=== PATIENT | male | born 1975 | race Caucasian/White ===

== ENCOUNTER 2016-02-15 08:53 | Emergency (ER) | payer BC, OTHER ==
[2016-02-15 09:52] LABS: Hematocrit 38.9 % (42.0-52.0); Hemoglobin 13.1 gm/dL (13.5-18.0); Mean Cell Volume 88.4 fl (78-100); Mean Corpuscular Hemoglobin 29.8 pg (27-31); Mean Corpuscular Hgb Conc 33.7 g/dl (32-36); Mean Platelet Volume 9.6 fl (6.0-9.5); Neutrophil % 62.4 % (42-75.0); Platelet Count 233 K/mm3 (150-450); Red Cell Distribution Width 12.6 % (11.5-14.0); White Blood Count 7.9 K/mm3 (4.0-10.5)
[2016-02-15 10:00] LABS: Urine Bilirubin Negative (NEGATIVE); Urine Blood Negative /ul (NEGATIVE); Urine Ketone Negative (NEGATIVE); Urine Nitrite Negative (NEGATIVE); Urine Protein Negative (NEGATIVE); Urine Urobilinogen Normal (NORMAL)
[2016-02-15 10:07] LABS: Anion Gap 15.4 mmol/L (6.8-13.8); BUN/Creatinine Ratio 11.1 (9.0-21.6); Bilirubin, Total 0.4 mg/dL (0.0-1.1); Ca. Corrected For Albumin 9.6 mg/dL (8.4-10.2); Calcium * 9.9 mg/dL (7.9-10.9); Carbon Dioxide 23.6 mmol/L (24-32.6); Total Protein 7.4 gm/dL (6.2-8.2)
[2016-02-15 10:10] LABS: Urine Appearance Clear; Urine Bacteria None Seen; Urine Color Yellow; Urine RBC None Seen /hpf (0-5); Urine WBC None Seen /hpf (0-5)
[2016-02-15] MEDS ORDERED: DICYCLOMINE HCL 10 MG/ML AMPUL IM ONE ×2 (10:11→10:15)
[2016-02-15] MEDS ORDERED: NORMAL SALINE 1,000 ML IV ONE (10:12)
--- NOTE | 2016-02-15 10:22 | ERNOTE ---
Abdominal HPI - Narrative Date of Service: 02/15/16 - General Chief Complaint: Abdominal Pain Time Seen by Provider: 02/15/16 10:00 Source: patient Exam Limitations: no limitations - Immun/Allergies/Home Medications Immunizatons: IMMUNIZATION HX Immunizations Up to Date Yes History of Influenza Vaccine Yes Hx Pneumococcal Vaccination No Allergies/Adverse Reactions: Allergies codeine [Codeine] Allergy (Severe, Verified 02/15/16 09:26) dizzy diphenhydramine HCl [From Benadryl] Allergy (Severe, Verified 02/15/16 09:26) Hives ibuprofen Allergy (Severe, Verified 02/15/16 09:26) Pain meloxicam [From Mobic] Allergy (Severe, Verified 02/15/16 09:26) itch oxycodone HCl [From OxyContin] Allergy (Severe, Verified 02/15/16 09:26) Nausea simvastatin Allergy (Severe, Verified 02/15/16 09:26) Pain amoxicillin Allergy (Verified 02/15/16 09:26) bee venom (honey bee) Allergy (Verified 02/15/16 09:26) nabumetone Allergy (Verified 02/15/16 09:26) sulfamethoxazole [From Bactrim] Allergy (Verified 02/15/16 09:26) trimethoprim [From Bactrim] Allergy (Verified 12/06/15 19:17) azithromycin [From Zithromax] Adverse Reaction (Verified 12/06/15 19:17) Itching Home Medications: HOME MEDICATIONS Esomeprazole Magnesium [Nexium] 20 mg PO DAILY 12/06/15 [Last Taken Unknown] Ciprofloxacin HCl [Cipro] 500 mg PO BID 02/15/16 [Last Taken Unknown] HYDROcodone/ACETAMINOPHEN [[place] 5-325] 1 tab PO Q6H PRN #8 tab 02/15/16 [Last Taken Unknown] Lactobac Cmb #3/Fos/Pantethine [Probiotic & Acidophilus Cap] 1 tab PO TID [Last Taken Unknown] - History of Present Illness Narrative: Pt. comes in with c/o one week history of testicle pain, abd pain, suprapubic pain and B flank pain. Pt. denies any NVD at this time. Pt. states that he was diagnosed testicular infection a week ago but did not take the antibiotics prescribed due to a recent C Diff infection. Pt. states that symptoms have worsened since making this decision. Pt. states that urination aggravates the pain but nothing alleviates the pain and he has not tried any prehospital treatment. Review of Systems - Review of Systems Constitutional: Present: weakness, fatigue, malaise. Absent: fever, chills, weight loss, decreased activity level EYE: Present: no symptoms reported ENT: Present: no symptoms reported Respiratory: Present: no symptoms reported. Absent: shortness of breath, cough , wheezing Cardiology: Present: no symptoms reported. Absent: chest pain, palpitations, edema Gastrointestinal/Abdominal: Present: abdominal pain, eating less, drinking less. Absent: nausea, vomiting, diarrhea Genitourinary: Present: frequency, pain, dysuria, decreased urinary output. Absent: hematuria, discharge Musculoskeletal: Present: back pain. Absent: neck pain, joint pain Skin: Present: no symptoms reported. Absent: rash, change in color Neurological: Present: no symptoms reported. Absent: headache, dizziness/light- headedness, numbness, tingling All Other Systems: All systems neg except as marked - Patient's Past Medical History Patient History - Medical: Anemia, GERD Patient History - Cardiac/Respiratory: Hyperlipidemia Patient History - Cancer: No Hx of Cancer Patient History - Surgical Procedures: Other - Family History Father Family History - Medical: Diabetes Type 2, Other Family History - Cardiac/Respiratory: Coronary Heart Disease, COPD, Hyperlipidemia Mother Family History - Medical: No pertinent hx Family History - Cardiac/Respiratory: No pertinent hx Sister Family History - Medical: Family History - Cancer: Leukemia - AML - Social History Living Situations: spouse Smoking Status: Current every day smoker Have you smoked in the past 12 months: Yes Do you dip or chew tobacco: No Patient requests Smoking Cessation Consult: No Initiate information on Smoking Cessation: No Alcohol Use: none Drug Use: none Physical Exam - Physical Exam General Appearance: Present: wd/wn, alert, no apparent distress Eye Exam: Normal inspection: bilateral, PERRL: bilateral, EOMI: bilateral Ears, Nose, Throat: Present: normal ENT inspection, hearing grossly normal, normal pharynx Neck: Present: normal inspection, nontender. Absent: lymphadenopathy (R), lymphadenopathy (L) Respiratory: Present: no respiratory distress, normal breath sounds, no accessory muscle use, chest nontender, lungs clear Cardiovascular/Chest: Present: regular rate, rhythm, no murmur, normal peripheral pulses Gastrointestinal/Abdominal: Present: normal bowel sounds, tenderness - upper epigastric, suprapubic, B groin and B flank Male Genitals Exam: Present: epididymal tenderness - B, inguinal tenderness - B , scrotum tenderness (R), scrotum tenderness (L) Back Exam: Present: normal inspection, normal range of motion, no CVA tenderness , no vertebral tenderness Neurological Exam: Present: alert, oriented, normal mood/affect, no motor/ sensory deficits Skin Exam: Present: normal color, warm/dry. Absent: pallor, skin rash Lymphatic Exam: Present: inguinal node (R), inguinal node (L) ED Progress - Date and Time Seen: Date and Time: 02/15/16 10:[address] Jovel and he recommends CT of abdomen for further diagnosis of worsening epidydimitis. As pt. was placed on Cipro by him without compliance. 02/15/16 13:34 Given that pt. without acute process other than presumed epidydimitis will have pt. follow up with PCP and Dr Jovel and will give medications for pain and have pt. start ordered abx - Results and Orders Patient's Lab Results:: I have reviewed the patient's lab results. - Vital Signs Patient's Vital Signs:: I have reviewed the patient's vital signs. Vital Signs: Vital Signs 02/15/16 09:17 Temperature 36.3 C L Pulse Rate 72 Respiratory 22 H Rate Blood Pressure 104/60 O2 Sat by Pulse 99 Oximetry - CT/Ultrasound CT/Ultrasound Narrative: CT negative for any acute process. - Progress/Reassessment Chief Complaint: Abdominal Pain Departure - Departure Clinical Impression: Acute epididymitis, Fatty liver disease, nonalcoholic Disposition: Home self-care Condition: Good Instructions: Nonalcoholic Fatty Liver Disease Diet, Hepatomegaly, [id number] , Epididymitis Additional Instructions: Please follow up with Dr Jovel and Dr Scott as ordered. Please start taking cipro as ordered. Please limit amount of Tylenol you are taking. Referrals: Chinyere Scott MD [Primary Care Provider] - Prescriptions: HYDROcodone/ACETAMINOPHEN [[place] 5-325] 1 tab PO Q6H PRN #8 tab PRN Reason: Pain
[2016-02-15] MEDS ORDERED: DIATRIZOATE MEGLU/DIATRIZO SOD 30 ML BTL ONE (10:34)
[2016-02-15] MEDS ORDERED: HYDROcodone/ACETAMINOPHEN 1 EACH TABLET ONE ×2 (13:36→13:59)
[2016-02-15] MEDS ORDERED: HYDROcodone/ACETAMINOPHEN 1 EACH TABLET PO ONE (13:36)
[2016-02-15 14:14] VITALS: BP 104/64
== END 2016-02-15 14:14 | disposition home or self-care (01) ==
LOC: ER 08:53
DX: N45.1 Epididymitis (principal); K76.0 Fatty (change of) liver, not elsewhere classified; F17.210 Nicotine dependence, cigarettes, uncomplicated; K21.9 Gastro-esophageal reflux disease without esophagitis

== ENCOUNTER 2016-02-18 08:41 | Emergency (ER) | payer BC, OTHER ==
[2016-02-18 08:55] VITALS: BP 155/84
--- NOTE | 2016-02-18 09:30 | ERNOTE ---
Abdominal HPI - Narrative Date of Service: 02/18/16 - General Chief Complaint: Abdominal Pain Source: patient - Immun/Allergies/Home Medications Immunizatons: IMMUNIZATION HX Immunizations Up to Date Yes History of Influenza Vaccine Yes Hx Pneumococcal Vaccination No Allergies/Adverse Reactions: Allergies codeine [Codeine] Allergy (Severe, Verified 02/18/16 08:55) dizzy diphenhydramine HCl [From Benadryl] Allergy (Severe, Verified 02/18/16 08:55) Hives ibuprofen Allergy (Severe, Verified 02/18/16 08:55) Pain meloxicam [From Mobic] Allergy (Severe, Verified 02/18/16 08:55) itch oxycodone HCl [From OxyContin] Allergy (Severe, Verified 02/18/16 08:55) Nausea simvastatin Allergy (Severe, Verified 02/18/16 08:55) Pain amoxicillin Allergy (Verified 02/18/16 08:55) bee venom (honey bee) Allergy (Verified 02/18/16 08:55) nabumetone Allergy (Verified 02/18/16 08:55) sulfamethoxazole [From Bactrim] Allergy (Verified 02/18/16 08:55) trimethoprim [From Bactrim] Allergy (Verified 02/18/16 08:55) azithromycin [From Zithromax] Adverse Reaction (Verified 02/18/16 08:55) Itching ciprofloxacin [From Cipro] Adverse Reaction (Verified 02/18/16 08:56) Hives ciprofloxacin HCl [From Cipro] Adverse Reaction (Verified 02/18/16 08:56) Hives Home Medications: HOME MEDICATIONS Esomeprazole Magnesium [Nexium] 20 mg PO DAILY 12/06/15 [Last Taken Unknown] HYDROcodone/ACETAMINOPHEN [[place] 5-325] 1 tab PO Q6H PRN #8 tab 02/15/16 [Last Taken Unknown] Lactobac Cmb #3/Fos/Pantethine [Probiotic & Acidophilus Cap] 1 tab PO TID [Last Taken Unknown] Doxycycline Monohydrate 100 mg PO BID #20 tablet 02/18/16 [Last Taken Unknown] traMADol HCL [Ultram] 50 mg PO QID PRN #20 tablet 02/18/16 [Last Taken Unknown] - History of Present Illness Timing: constant Quality: moderate, other - burning with urination and difficulty with starting a stream Review of Systems - Review of Systems Constitutional: Present: See HPI EYE: Present: no symptoms reported ENT: Present: no symptoms reported Respiratory: Present: no symptoms reported Cardiology: Present: no symptoms reported Gastrointestinal/Abdominal: Present: no symptoms reported, other - pt has a known inflammed prostate with epididymitis Genitourinary: Present: no symptoms reported Musculoskeletal: Present: no symptoms reported Skin: Present: no symptoms reported Neurological: Present: no symptoms reported Endocrine: Present: no symptoms reported Hematologic/Lymphatic: Present: no symptoms reported Psych: Present: no symptoms reported - Patient's Past Medical History Patient History - Medical: Anemia, GERD, Other - Prostatitis, Epididymitis Patient History - Cardiac/Respiratory: Hyperlipidemia Patient History - Cancer: No Hx of Cancer Patient History - Surgical Procedures: Other - Family History Father Family History - Medical: Diabetes Type 2, Other Family History - Cardiac/Respiratory: Coronary Heart Disease, COPD, Hyperlipidemia Mother Family History - Medical: No pertinent hx Family History - Cardiac/Respiratory: No pertinent hx Sister Family History - Medical: Family History - Cancer: Leukemia - AML - Social History Living Situations: home Alcohol Use: none Drug Use: none Physical Exam - Physical Exam General Appearance: Present: wd/wn, alert, moderate distress Eye Exam: Normal inspection: bilateral, PERRL: bilateral Ears, Nose, Throat: Present: normal ENT inspection, hearing grossly normal, normal pharynx Neck: Present: normal inspection, nontender Respiratory: Present: no respiratory distress, normal breath sounds, no accessory muscle use, chest nontender, lungs clear Cardiovascular/Chest: Present: regular rate, rhythm, no murmur, normal peripheral pulses Gastrointestinal/Abdominal: Present: normal bowel sounds, nontender, nondistended, soft, no organomegaly Rectal Exam: Present: deferred - Pt had a recent rectal exam and has deferred one today Back Exam: Present: normal inspection, normal range of motion Extremity Exam: Present: normal inspection, non-tender, no edema, normal range of motion Neurological Exam: Present: alert, oriented, normal mood/affect Skin Exam: Present: normal color, warm/dry Lymphatic Exam: Present: no adenopathy ED Progress - Vital Signs Patient's Vital Signs:: I have reviewed the patient's vital signs. Vital Signs: Vital Signs 02/18/16 08:51 Temperature 36.7 C Pulse Rate 87 Respiratory 12 Rate Blood Pressure 155/84 O2 Sat by Pulse 99 Oximetry - Progress/Reassessment Chief Complaint: Abdominal Pain Progress:: Unchanged - Transfer of Care Expected Disposition: Discharge Plan - Plan Plan: We will try Doxycycline and Tramadol. Pt is difficult to treat due to the fatty liver. Departure - Departure Clinical Impression: Epididymitis Prostatitis Qualifiers: Prostatitis type: chronic Qualified Code(s): N41.1 - Chronic prostatitis Disposition: Home self-care Condition: Good Instructions: Prostatitis, [id number], Epididymitis Referrals: Chinyere Scott MD [Primary Care Provider] - Cruz Jovel MD [Associate] - Prescriptions: Doxycycline Monohydrate 100 mg PO BID #20 tablet traMADol HCL [Ultram] 50 mg PO QID PRN #20 tablet PRN Reason: Moderate Pain
== END 2016-02-18 09:35 | disposition home or self-care (01) ==
LOC: ER 08:41
DX: N45.1 Epididymitis (principal); N41.1 Chronic prostatitis; K21.9 Gastro-esophageal reflux disease without esophagitis

== ENCOUNTER 2016-03-07 07:34 | Emergency (ER) | payer BC, OTHER ==
[2016-03-07] MEDS ORDERED: HYDROmorphone HCL 1 MG/ML DISP.SYRIN ONE (07:53)
[2016-03-07] MEDS ORDERED: ASPIRIN 81 MG TAB.CHEW ONE (08:00)
[2016-03-07] MEDS ORDERED: ASPIRIN 81 MG TAB.CHEW PO ONE (08:03)
[2016-03-07] MEDS ORDERED: NITROGLYCERIN 0.4 MG/TAB BTL SL ONE (08:03)
[2016-03-07 08:08] LABS: Hematocrit 39.5 % (42.0-52.0); Hemoglobin 13.7 gm/dL (13.5-18.0); Mean Cell Volume 87.6 fl (78-100); Mean Corpuscular Hemoglobin 30.4 pg (27-31); Mean Corpuscular Hgb Conc 34.7 g/dl (32-36); Mean Platelet Volume 9.9 fl (6.0-9.5); Neutrophil # 3.7 K/mm3 (1.3-6.0); Neutrophil % 52.6 % (42-75.0); Platelet Count 246 K/mm3 (150-450); Red Blood Count 4.51 M/mm3 (4.7-6.0); Red Cell Distribution Width 12.4 % (11.5-14.0)
--- NOTE | 2016-03-07 08:11 | ERNOTE ---
Chest Pain/Cardiac HPI Date of Service: 03/07/16 Chief Complaint: Chest Pain Time Seen by Provider: 03/07/16 07:53 Source: patient, family Exam Limitations: no limitations Immunizations: IMMUNIZATION HX Immunizations Up to Date Yes History of Influenza Vaccine Yes Hx Pneumococcal Vaccination No Allergies/Adverse Reactions: Allergies codeine [Codeine] Allergy (Severe, Verified 03/07/16 09:42) dizzy diphenhydramine HCl [From Benadryl] Allergy (Severe, Verified 03/07/16 09:42) Hives ibuprofen Allergy (Severe, Verified 03/07/16 09:42) Pain meloxicam [From Mobic] Allergy (Severe, Verified 03/07/16 09:42) itch oxycodone HCl [From OxyContin] Allergy (Severe, Verified 03/07/16 09:42) Nausea simvastatin Allergy (Severe, Verified 03/07/16 09:42) Pain amoxicillin Allergy (Verified 03/07/16 09:42) bee venom (honey bee) Allergy (Verified 03/07/16 09:42) nabumetone Allergy (Verified 03/07/16 09:42) sulfamethoxazole [From Bactrim] Allergy (Verified 03/07/16 09:42) trimethoprim [From Bactrim] Allergy (Verified 03/07/16 09:42) azithromycin [From Zithromax] Adverse Reaction (Verified 03/07/16 09:42) Itching ciprofloxacin [From Cipro] Adverse Reaction (Verified 03/07/16 09:42) Hives ciprofloxacin HCl [From Cipro] Adverse Reaction (Verified 03/07/16 09:42) Hives Home Medications: HOME MEDICATIONS Esomeprazole Magnesium [Nexium] 20 mg PO DAILY 12/06/15 [Last Taken Unknown] Lactobac Cmb #3/Fos/Pantethine [Probiotic & Acidophilus Cap] 1 tab PO TID [Last Taken Unknown] traMADol HCL [Ultram] 50 mg PO QID PRN #20 tablet 02/18/16 [Last Taken Unknown] Narrative: THE PATIENT patient presents with chest pain and upper abdominal pain as being going on for 2 days. Gradual onset, intermittent pain . Pain is located more left lower chest as well as left upper abdomen. Denies any radiation of the pain. Was not diaphoretic. Not Nauseated no vomiting. Worse with movement. Denies any fever cough congestion. No headache or dizziness. 2 weeks ago he had right lower quadrant pain which he was worked up with a CAT scan which was negative. No history of diabetes or hypertension does have a history of hyperlipidemia Family history significant for dad having heart disease at the age of 65 next Pain at this time is a 7-8 out of 10. Date (Duration): 03/05/16 Timing: intermittent Severity/Quality: moderate Location: left chest Chest Pain Radiation: no radiation Nitro Today/Relief: no nitro taken today Aspirin Treatment Today: no aspirin today Associated Symptoms: Present: nausea, abdominal pain. Absent: headache, dizziness, syncope, cough, shortness of breath, diaphoresis, fever/chills, palpitations, vomiting, weakness, back pain Review of Systems - Review of Systems Constitutional: Absent: fever, weakness, fatigue ENT: Absent: ear discharge, nose congestion, nasal drainage Respiratory: Absent: shortness of breath, cough, orthopnea Cardiology: Present: chest pain. Absent: palpitations, syncope, claudication Gastrointestinal/Abdominal: Present: nausea, abdominal pain, eating less. Absent: vomiting, diarrhea, constipation All Other Systems: All systems neg except as marked - Patient's Past Medical History Patient History - Medical: Anemia, GERD, Other Patient History - Cardiac/Respiratory: No pertinent hx Patient History - Cancer: No Hx of Cancer Patient History - Surgical Procedures: Other Patient History - Other: None - Family History Father Family History - Medical: Diabetes Type 2, Other Family History - Cardiac/Respiratory: Coronary Heart Disease, COPD, Hyperlipidemia Mother Family History - Medical: No pertinent hx Family History - Cardiac/Respiratory: No pertinent hx Sister Family History - Medical: - Social History Living Situations: home Smoking Status: Current every day smoker Alcohol Use: none Drug Use: none - Immunizations Immunizations Up to Date: Yes Hx Pneumococcal Vaccination: No History of Influenza Vaccine: Yes Physical Exam - Physical Exam General Appearance: Present: alert, no apparent distress Eye Exam: PERRL: bilateral Ears, Nose, Throat: Present: normal ENT inspection, hearing grossly normal, normal pharynx Neck: Present: normal inspection, nontender, supple, full range of motion Respiratory: Present: no respiratory distress, normal breath sounds, no accessory muscle use, chest nontender, lungs clear Cardiovascular/Chest: Present: regular rate, rhythm, no murmur, normal peripheral pulses Gastrointestinal/Abdominal: Present: normal bowel sounds, nondistended, soft, tenderness - at the left upper abdomen and left lower chest wall with palpation. Absent: abnormal bowel sounds Back Exam: Present: normal inspection, normal range of motion, no CVA tenderness , no vertebral tenderness Neurological Exam: Present: alert, oriented, normal mood/affect, no motor/ sensory deficits Skin Exam: Present: normal color, warm/dry Lymphatic Exam: Present: no adenopathy ED Progress - Date and Time Seen: Date and Time: 03/07/16 11:20 Doing well - Results and Orders Patient's Lab Results:: I have reviewed the patient's lab results. - Vital Signs Patient's Vital Signs:: I have reviewed the patient's vital signs. Vital Signs: Vital Signs 03/07/16 07:47 Temperature 35.5 C L Pulse Rate 71 Respiratory 17 Rate Blood Pressure 113/66 O2 Sat by Pulse 100 Oximetry - EKG EKG: NSR EKG read: Reviewed by me EKG Comments: no acute changes nonspecific ST-T wave changes - X-Ray X-Ray #1 X-Ray: chest Interpretation: Reviewed by me X-ray Comments: No acute changes - CT/Ultrasound CT/Ultrasound Narrative: CAT scan of the abdomen and pelvis did not show anything acute - Progress/Reassessment Chief Complaint: Chest Pain Progress:: Improved Progress Note-Subjective: 03/08/16 10:09 Patient doing well no new changes discharged home return back to ER with any change or worsening symptoms - Transfer of Care Expected Disposition: Discharge - since feeling better sitting comfortably in bed does not appear to be in any distress pain is resolved. 2 troponins were negative as well as CT abdomen and pelvis was negative as well. I think a lot of this is more of his gastritis continue his present home meds follow-up family doctor in 2-3 days returning back to the ER with any change or worsening symptoms Departure - Departure Clinical Impression: Abdominal pain of unknown cause Chest pain Qualifiers: Chest pain type: unspecified Qualified Code(s): R07.9 - Chest pain, unspecified Disposition: Home Follow Up Needed Condition: Stable Instructions: Gastritis, Adult, [id number], Chest Wall Pain, [id number] Referrals: Chinyere Scott MD [Primary Care Provider] -
[2016-03-07] MEDS ORDERED: PANTOPRAZOLE SODIUM 40 MG in NORMAL SALINE 100 ML IV ONE (08:32)
[2016-03-07] MEDS ORDERED: LIDOCAINE HCL 20 ML UDC MM ONE (08:32)
[2016-03-07] MEDS ORDERED: MAG HYDROX/ALUMINUM HYD/SIMETH 30 ML UDC PO ONE (08:32)
[2016-03-07] MEDS ORDERED: BELLADONNA ALKALOIDS/PHENOBARB 60 ML BTL PO ONE (08:33)
[2016-03-07 08:34] LABS: ALT 26 U/L (19-67); AST 11 U/L (0-48); Albumin * 4.1 gm/dl (3.4-5.0); Alkaline Phosphatase * 73 U/L (50-170); Amylase * 39 U/L (25-115); Anion Gap 15.3 mmol/L (6.8-13.8); BUN/Creatinine Ratio 16.8 (9.0-21.6); Bilirubin, Total 0.4 mg/dL (0.0-1.1); Blood Urea Nitrogen 17 mg/dL (6-23); CK Total * 76 U/L (0-259); Ca. Corrected For Albumin 9.5 mg/dL (8.4-10.2); Calcium * 9.9 mg/dL (7.9-10.9); Carbon Dioxide 21.9 mmol/L (24-32.6); Chloride 107 mmol/L (97-106); Glucose * 114 mg/dL (70-110); Lipase 140 U/L (73-393); Potassium 4.2 mmol/L (3.4-4.6); Sodium 140 mmol/L (132-142); Total Protein 7.9 gm/dL (6.2-8.2)
[2016-03-07] MEDS ORDERED: PANTOPRAZOLE SODIUM 40 MG/100 ML PIGGYBACK IV ONE (08:35)
[2016-03-07 08:58] LABS: Troponin I Less than 0.017 ng/ml (0.00-0.10)
[2016-03-07] MEDS ORDERED: LORazepam 2 MG/ML DISP.SYRIN IV ONE (11:16)
[2016-03-07] MEDS ORDERED: NORMAL SALINE 1,000 ML IV ONE (11:17)
[2016-03-07] MEDS ORDERED: DIATRIZOATE MEGLU/DIATRIZO SOD 30 ML BTL PO ONE (11:34)
[2016-03-07] MEDS ORDERED: DIATRIZOATE MEGLU/DIATRIZO SOD 30 ML BTL ONE ×2 (11:36→11:43)
[2016-03-07] MEDS ORDERED: LORazepam 2 MG/ML DISP.SYRIN ONE (11:36)
[2016-03-07] MEDS ORDERED: MORPHINE SULFATE 2 MG/ML DISP.SYRIN ONE (11:44)
[2016-03-07] MEDS ORDERED: MORPHINE SULFATE 2 MG/ML DISP.SYRIN IV ONE (11:46)
[2016-03-07 13:41] VITALS: BP 106/64
== END 2016-03-07 14:55 | disposition home or self-care (01) ==
LOC: ER 07:34
DX: R10.9 Unspecified abdominal pain (principal); K29.00 Acute gastritis without bleeding; R07.9 Chest pain, unspecified; Z72.0 Tobacco use

== ENCOUNTER 2016-07-24 22:52 | Emergency (ER) | payer BC, OTHER ==
--- NOTE | 2016-07-24 22:58 | ERNOTE ---
Abdominal HPI - Narrative Date of Service: 07/24/16 - General Time Seen by Provider: 07/24/16 22:55 Source: patient, family - Immun/Allergies/Home Medications Immunizatons: IMMUNIZATION HX Immunizations Up to Date Yes History of Influenza Vaccine Yes Hx Pneumococcal Vaccination No Allergies/Adverse Reactions: Allergies codeine [Codeine] Allergy (Severe, Verified 07/24/16 23:01) dizzy diphenhydramine HCl [From Benadryl] Allergy (Severe, Verified 07/24/16 23:01) Hives ibuprofen Allergy (Severe, Verified 07/24/16 23:01) Pain meloxicam [From Mobic] Allergy (Severe, Verified 07/24/16 23:01) itch oxycodone HCl [From OxyContin] Allergy (Severe, Verified 07/24/16 23:01) Nausea simvastatin Allergy (Severe, Verified 07/24/16 23:01) Pain amoxicillin Allergy (Verified 07/24/16 23:01) nabumetone Allergy (Verified 07/24/16 23:01) sulfamethoxazole [From Bactrim] Allergy (Verified 07/24/16 23:01) trimethoprim [From Bactrim] Allergy (Verified 07/24/16 23:01) venom-honey bee [bee venom (honey bee)] Allergy (Verified 07/24/16 23:01) azithromycin [From Zithromax] Adverse Reaction (Verified 07/24/16 23:01) Itching ciprofloxacin [From Cipro] Adverse Reaction (Verified 07/24/16 23:01) Hives ciprofloxacin HCl [From Cipro] Adverse Reaction (Verified 07/24/16 23:01) Hives Home Medications: HOME MEDICATIONS Esomeprazole Magnesium [Nexium] 20 mg PO DAILY 12/06/15 [Last Taken Unknown] Lactobacillus 3/Fos/Pantethine [Probiotic & Acidophilus Cap] 1 tab PO TID [Last Taken Unknown] Lecithin 1,200 mg PO DAILY 07/24/16 [Last Taken Unknown] [place] Oil/[place]-3 Fatty Acids [Fish Oil] 1,200 mg PO DAILY 07/24/16 [Last Taken Unknown] Cefuroxime Axetil [Ceftin] 500 mg PO BID #20 tab 07/25/16 [Last Taken Unknown] Tramadol HCl [Rybix Odt] 50 mg PO Q8H PRN #10 tab.ashok 07/25/16 [Last Taken Unknown] - History of Present Illness Narrative: PT HERE FOR C/O ABD PAIN SINCE Monday. NO FEVER , NO V OR D, NO TRAUMA. DENIES UTI SX. REVIEW OF RECORD SHOWS SINCE 2014 HE HAS HAD MULTIPLE ER VISITS FOR ABDOMINAL PAINS WITH NOTHING FOUND EXCEPT ON 11/2015 WHEN HE HAD C. DIFF AFTER BEING PUT ON CLINDAMYCIN FOR A SORE THROAT. HE DENIES RECENT ANTIBIOTICS . STATES HE HAD NL BM TONGHT AT 1830 . HE ALSO ATE PORK CHOPS MASHED POTATOES AND BROCCOLI TONIGHT WITHOUT MAKING HIS PAIN WORSE. HE DENIES A HX OF LACTOSE INTOLERANCE. HE HAS NEVER BEEN SEEN BY A TYPIST FOR HIS RECURRENT ABD PAIN. HE DOES TAKE AN OTC NATURES MAD LECITHIN SUPPLEMENT ( MAIN SIDE EFFECT = NAUSEA AND ABDOMINAL PAIN) WELL A FISH OIL SUPPLEMENT. HE DOES HAVE A HX OF GERD FOOR WHICH HE IS ON NEXIUM BUT DID NOT TAKE IT TODAY. HE TRIED GAS X YESTERDAY AND GAVISCON TONIGHT WITHOUT HELP. HE SAYS HE HAS ELEVATED CHOLESTEROL BUT DENIES OTHER MEDICAL PROBLEMS. HE HAS A LONG LIST OF "ALLERGIES" THAT LOOKS MOSTLY LIKE SIDE EFFECTS INSTEAD. IS FINE. Review of Systems - Review of Systems Constitutional: Present: See HPI EYE: Present: no symptoms reported ENT: Present: no symptoms reported Respiratory: Present: no symptoms reported Cardiology: Present: no symptoms reported Gastrointestinal/Abdominal: Present: nausea, abdominal pain Genitourinary: Present: no symptoms reported Musculoskeletal: Present: no symptoms reported Skin: Present: no symptoms reported Neurological: Present: no symptoms reported Endocrine: Present: no symptoms reported Hematologic/Lymphatic: Present: no symptoms reported Psych: Present: no symptoms reported All Other Systems: All systems neg except as marked - Patient's Past Medical History Patient History - Medical: Anemia, GERD, Other Patient History - Cardiac/Respiratory: No pertinent hx, Hyperlipidemia Patient History - Cancer: No Hx of Cancer Patient History - Surgical Procedures: Other Patient History - Other: None - Family History Father Family History - Medical: Diabetes Type 2, Other Family History - Cardiac/Respiratory: Coronary Heart Disease, COPD, Hyperlipidemia Mother Family History - Medical: No pertinent hx Family History - Cardiac/Respiratory: No pertinent hx Sister Family History - Medical: - Social History Living Situations: home Abuse History: No History of abuse Psych History: No pertinent hx Smoking Status: Current every day smoker Alcohol Use: none Drug Use: none - Immunizations Immunizations Up to Date: Yes Hx Pneumococcal Vaccination: No History of Influenza Vaccine: Yes Physical Exam - Physical Exam General Appearance: Present: wd/wn, alert, moderate distress - PT WALKS IN HOLDING HIS RIGHT LOWER ABDOMEN AND MOANING AND GROANING. Respiratory: Present: no respiratory distress, normal breath sounds, no accessory muscle use, chest nontender, lungs clear Cardiovascular/Chest: Present: regular rate, rhythm, normal peripheral pulses Gastrointestinal/Abdominal: Present: normal bowel sounds, nondistended, soft, no organomegaly, tenderness - HE SAYS IT HURT ALL OVER AND ITNO BACK ON BOTH SIDES. HE CAN NOT LOCALIZE AN AREA OF GREATEST INTENSITY . HE HAS GUARDING THROUGHOUT HEIS ABDOMEN BUT NO REBOUND. NO MASSES. Back Exam: Present: normal inspection, no vertebral tenderness, CVA tenderness ( L) Extremity Exam: Present: normal inspection Neurological Exam: Present: alert, oriented, other - HE SEEMS SOME WHAT DRAMATIC , MOANING AND GROANING ALSO WHEN R.N. STARTS IV. Skin Exam: Present: normal color, warm/dry. Absent: jaundice ED Progress - Results and Orders Patient's Lab Results:: I have reviewed the patient's lab results. Results and Orders: THE CBC AND CMP ARE NORMAL THEY HAVE BEEN IN THE PAST. HIS URINE THOUGH HAS + LEUKO LIZZ. AND WBC AND 2+ BACTERIA . A CULTURE IS PENDING. THE CRP = 0.3 OR NEGATIVE. - Vital Signs Patient's Vital Signs:: I have reviewed the patient's vital signs. Vital Signs: VS ARE TOTALLY NORMAL , EVEN HEART RATE THOUGH HE IS MOANING WITH HIS PAIN. Plan - Plan Plan: WILL GIVE A DOSE OF 1 GM ROCEPHIN IV NOW AND DISCHARGE HOME ON CEFTIN TO F/U WITH HIS FAMILY DOCTOR . Departure - Departure Clinical Impression: Recurrent abdominal pain, UTI (urinary tract infection), bacterial Disposition: Home Follow Up Needed Condition: Fair Instructions: Urinary Tract Infection, Adult, [id number], Abdominal Pain, Adult, [id number], Prostatitis, [id number] Additional Instructions: FOLLOW UP WITH YOUR FAMILY DOCTOR IF FURTHER PROBLEMS IF CONTINUING TO HAVE THESE EPISODES AND NOTHING IS FOUND YOU MAY BENEFIT FROM A REFERRAL TO A SPECIALIST BY YOUR FAMILY DOCTOR. I GAVE YOU IN FORMATION ON PROSTATITIS IN A MALE WITH YOUR SYMPTOMS IT IS OFTEN THE CAUSE OF THE BACTERIA IN THE URINE . Referrals: Chinyere Scott MD [Primary Care Provider] - Prescriptions: Cefuroxime Axetil [Ceftin] 500 mg PO BID #20 tab Tramadol HCl [Rybix Odt] 50 mg PO Q8H PRN #10 tab.rapdis PRN Reason: Pain
[2016-07-24 23:21] LABS: Urine Bilirubin Negative (NEGATIVE); Urine Blood Negative /ul (NEGATIVE); Urine Ketone Negative (NEGATIVE); Urine Nitrite Negative (NEGATIVE); Urine Protein Negative (NEGATIVE); Urine Urobilinogen Normal (NORMAL)
[2016-07-24] MEDS ORDERED: NORMAL SALINE 1,000 ML IV ONE (23:26)
[2016-07-24] MEDS ORDERED: MORPHINE SULFATE 4 MG/ML SYRG IV ONE (23:26)
[2016-07-24] MEDS ORDERED: PROMETHAZINE HCL 50 MG/ML AMPUL IM ONE ×2 (23:27→23:31)
[2016-07-24 23:29] LABS: Hematocrit 40.9 % (42.0-52.0); Hemoglobin 14.2 gm/dL (13.5-18.0); Mean Corpuscular Hemoglobin 30.2 pg (27-31); Mean Corpuscular Hgb Conc 34.7 g/dl (32-36); Mean Platelet Volume 9.7 fl (6.0-9.5); Neutrophil # 3.8 K/mm3 (1.3-6.0); Neutrophil % 44.4 % (42-75.0); Platelet Count 277 K/mm3 (150-450); Red Cell Distribution Width 12.4 % (11.5-14.0); White Blood Count 8.5 K/mm3 (4.0-10.5)
[2016-07-24] MEDS ORDERED: MORPHINE SULFATE 4 MG/ML SYRG ONE (23:30)
[2016-07-24 23:31] LABS: Urine Amorphous Sediment Moderate - 2+ (NONE-FEW); Urine Appearance Slightly Cloudy; Urine Bacteria 2+; Urine Color Pale Yellow; Urine RBC None Seen /hpf (0-5); Urine WBC 0-5 /hpf (0-5)
[2016-07-24 23:43] LABS: Anion Gap 13.1 mmol/L (6.8-13.8); Bilirubin, Total 0.3 mg/dL (0.0-1.1); CRP 0.3 mg/dL (0.0-0.9); Ca. Corrected For Albumin 9.4 mg/dL (8.4-10.2); Calcium * 9.7 mg/dL (7.9-10.9); Carbon Dioxide 26.8 mmol/L (24-32.6); Potassium 3.9 mmol/L (3.4-4.6); Total Protein 7.9 gm/dL (6.2-8.2)
[2016-07-24 23:44] LABS: Cocaine Ur Negative (NEGATIVE); Urine Barbiturate Negative (NEGATIVE); Urine Benzodiazepines Negative (NEGATIVE); Urine Opiates Negative (NEGATIVE); Urine PCP Negative (NEGATIVE); Urine THC Negative (NEGATIVE)
[2016-07-25] MEDS ORDERED: CEFUROXIME AXETIL 500 MG TABLET PO ONE (01:34)
[2016-07-25 01:35] VITALS: BP 100/58
== END 2016-07-25 02:35 | disposition home or self-care (01) ==
LOC: ER 22:52
DX: R10.9 Unspecified abdominal pain (principal); N39.0 Urinary tract infection, site not specified; A49.9 Bacterial infection, unspecified; F17.200 Nicotine dependence, unspecified, uncomplicated; K21.9 Gastro-esophageal reflux disease without esophagitis

== ENCOUNTER 2016-07-29 22:11 | Emergency (ER) | payer BC, OTHER ==
[2016-07-29] MEDS ORDERED: FAMOTIDINE 10 MG/ML VIAL IV ONE ×2 (22:29)
[2016-07-29] MEDS ORDERED: DEXAMETHASONE SOD PHOSPHATE 10 MG/ML VIAL ONE (22:29)
[2016-07-29] MEDS ORDERED: DEXAMETHASONE SOD PHOSPHATE 10 MG/ML VIAL IV ONE (22:30)
[2016-07-29] MEDS ORDERED: LORATADINE 10 MG TABLET PO ONE (22:37)
[2016-07-29] MEDS ORDERED: EPINEPHrine 1 MG/ML AMPUL IM ONE (22:39)
[2016-07-29] MEDS ORDERED: LORATADINE 10 MG TABLET ONE (22:41)
[2016-07-29] MEDS ORDERED: EPINEPHrine 1 MG/ML AMPUL ONE (22:41)
--- NOTE | 2016-07-29 22:49 | ERNOTE ---
Allergy Symptoms - ER Date of Service: 07/29/16 Presenting Symptoms: skin rash, itching Source: patient Exam Limitations: no limitations Immunizations: IMMUNIZATION HX Immunizations Up to Date Yes History of Influenza Vaccine Yes Hx Pneumococcal Vaccination No Allergies/Adverse Reactions: Allergies codeine [Codeine] Allergy (Severe, Verified 07/24/16 23:01) dizzy diphenhydramine HCl [From Benadryl] Allergy (Severe, Verified 07/24/16 23:01) Hives ibuprofen Allergy (Severe, Verified 07/24/16 23:01) Pain meloxicam [From Mobic] Allergy (Severe, Verified 07/24/16 23:01) itch oxycodone HCl [From OxyContin] Allergy (Severe, Verified 07/24/16 23:01) Nausea simvastatin Allergy (Severe, Verified 07/24/16 23:01) Pain amoxicillin Allergy (Verified 07/24/16 23:01) nabumetone Allergy (Verified 07/24/16 23:01) sulfamethoxazole [From Bactrim] Allergy (Verified 07/24/16 23:01) trimethoprim [From Bactrim] Allergy (Verified 07/24/16 23:01) venom-honey bee [bee venom (honey bee)] Allergy (Verified 07/24/16 23:01) azithromycin [From Zithromax] Adverse Reaction (Verified 07/24/16 23:01) Itching ciprofloxacin [From Cipro] Adverse Reaction (Verified 07/24/16 23:01) Hives ciprofloxacin HCl [From Cipro] Adverse Reaction (Verified 07/24/16 23:01) Hives Home Medications: HOME MEDICATIONS Esomeprazole Magnesium [Nexium] 20 mg PO DAILY 12/06/15 [Last Taken Unknown] Lactobacillus 3/Fos/Pantethine [Probiotic & Acidophilus Cap] 1 tab PO TID [Last Taken Unknown] Lecithin 1,200 mg PO DAILY 07/24/16 [Last Taken Unknown] [place] Oil/[place]-3 Fatty Acids [Fish Oil] 1,200 mg PO DAILY 07/24/16 [Last Taken Unknown] Cefuroxime Axetil [Ceftin] 500 mg PO BID #20 tab 07/25/16 [Last Taken Unknown] Tramadol HCl [Rybix Odt] 50 mg PO Q8H PRN #10 tab.rapdis 07/25/16 [Last Taken Unknown] Cetirizine HCl [Zyrtec] 10 mg PO DAILY #6 tab 07/29/16 [Last Taken Unknown] predniSONE [Prednisone] 2 tab PO DAILY #6 tab 07/29/16 [Last Taken Unknown] - History of Present Illness Narrative: 40 year old that has been taking Cefuroxime for a UTI for the last week. Today he noted the onset of a rash, itching and throat discomfort. No complaints of shortness of breath, fevers or chills. No complaints of pain. There is a history of three other allergic reactions. Timing: Present: constant Treatment CHANNELER OUTSOLE:: by patient Location skin rash/itching: Present: facial, trunk, extremities Severity trouble swallowing/speaking: Absent: mild, moderate, severe Identified cause?: Yes Exposure: Present: antibiotic Modifying Factors (Improves): Reports: other - none Modifying Factors (Worsens): Reports: other - none Review of Systems - Review of Systems Constitutional: Present: no symptoms reported EYE: Present: no symptoms reported ENT: Present: no symptoms reported Respiratory: Present: no symptoms reported Cardiology: Present: no symptoms reported Gastrointestinal/Abdominal: Present: no symptoms reported Genitourinary: Present: no symptoms reported Musculoskeletal: Present: no symptoms reported Skin: Present: no symptoms reported Neurological: Present: no symptoms reported Endocrine: Present: no symptoms reported Hematologic/Lymphatic: Present: no symptoms reported - Patient's Past Medical History Patient History - Medical: Anemia, GERD, Other Patient History - Cardiac/Respiratory: No pertinent hx, Hyperlipidemia Patient History - Cancer: No Hx of Cancer Patient History - Surgical Procedures: Other Patient History - Other: None - Family History Father Family History - Medical: Diabetes Type 2, Other Family History - Cardiac/Respiratory: Coronary Heart Disease, COPD, Hyperlipidemia Mother Family History - Medical: No pertinent hx Family History - Cardiac/Respiratory: No pertinent hx Sister Family History - Medical: - Social History Living Situations: home Abuse History: No History of abuse Psych History: No pertinent hx Smoking Status: Current every day smoker Have you smoked in the past 12 months: Yes Do you dip or chew tobacco: No Patient requests Smoking Cessation Consult: No Initiate information on Smoking Cessation: No Alcohol Use: none Drug Use: none - Immunizations Immunizations Up to Date: Yes Hx Pneumococcal Vaccination: No History of Influenza Vaccine: Yes Physical Exam - Physical Exam General Appearance: Present: mild distress Eye Exam: Normal inspection: bilateral Ears, Nose, Throat: Present: normal ENT inspection Neck: Present: normal inspection, supple Respiratory: Present: no respiratory distress Cardiovascular/Chest: Present: regular rate, rhythm Gastrointestinal/Abdominal: Present: nontender Back Exam: Present: normal inspection Extremity Exam: Present: normal inspection Neurological Exam: Present: alert, oriented, normal mood/affect Skin Exam: Present: skin rash - urticaria ED Progress - Vital Signs Patient's Vital Signs:: I have reviewed the patient's vital signs. Vital Signs: Vital Signs 07/29/16 22:16 Temperature 36.4 C L Pulse Rate 76 Respiratory 16 Rate Blood Pressure 130/87 O2 Sat by Pulse 97 Oximetry - Progress/Reassessment Chief Complaint: Allergic Reaction Progress:: Improved Progress Note-Subjective: 07/29/16 22:48 Hemodynamically stable. 07/29/16 23:44 Feels better, now playing with cell phone. Urticaria is receding. Departure Clinical Impression: Drug reaction - Departure Disposition: Home Follow Up Needed Condition: Good Instructions: Drug Allergy, [id number] Print Language: Slovak Additional Instructions: Follow up with your doctor in the next 3-5 days. Do not take the Cefuroxime any longer. Referrals: Chinyere Scott MD [Primary Care Provider] - Prescriptions: Cetirizine HCl [Zyrtec] 10 mg PO DAILY #6 tab predniSONE [Prednisone] 2 tab PO DAILY #6 tab
[2016-07-29] MEDS ORDERED: hydrOXYzine HCL 50 MG/ML VIAL IM SCH (23:00)
[2016-07-30 00:30] VITALS: BP 111/64
== END 2016-07-30 00:24 | disposition home or self-care (01) ==
LOC: ER 22:11
DX: T36.1X5A Adverse effect of cephalosporins and other beta-lactam antibiotics, initial encounter (principal); Z72.0 Tobacco use; K21.9 Gastro-esophageal reflux disease without esophagitis; D64.9 Anemia, unspecified

== ENCOUNTER 2016-09-19 18:14 | Emergency (ER) | payer BC, OTHER ==
[2016-09-19] MEDS ORDERED: DIAZEPAM 5 MG/ML SYRG IV ONE (19:21)
[2016-09-19] MEDS ORDERED: METOCLOPRAMIDE HCL 5 MG/ML VIAL IV ONE (19:21)
[2016-09-19] MEDS ORDERED: NORMAL SALINE 1,000 ML IV ONE (19:21)
[2016-09-19] MEDS ORDERED: DIAZEPAM 5 MG/ML SYRG ONE (19:32)
[2016-09-19] MEDS ORDERED: METOCLOPRAMIDE HCL 5 MG/ML VIAL ONE (19:32)
[2016-09-19] MEDS ORDERED: BENZTROPINE MESYLATE 1 MG/ML AMPUL ONE (19:33)
[2016-09-19 19:34] LABS: Hematocrit 40.7 % (42.0-52.0); Mean Corpuscular Hemoglobin 29.6 pg (27-31); Mean Corpuscular Hgb Conc 34.4 g/dl (32-36); Mean Platelet Volume 9.6 fl (6.0-9.5); Neutrophil # 5.6 K/mm3 (1.3-6.0); Neutrophil % 53.5 % (42-75.0); Platelet Count 260 K/mm3 (150-450); Red Blood Count 4.73 M/mm3 (4.7-6.0); Red Cell Distribution Width 12.5 % (11.5-14.0); White Blood Count 10.5 K/mm3 (4.0-10.5)
--- NOTE | 2016-09-19 19:37 | ERNOTE ---
<Izaiah Amaro - Last Filed: 09/19/16 19:54> Headache ER HPI - General Presenting Symptoms: headache Time Seen by Provider: 09/19/16 19:12 Source: patient, family - Immun/Allergies/Home Medications Immunizations: IMMUNIZATION HX Immunizations Up to Date Yes History of Influenza Vaccine Yes Hx Pneumococcal Vaccination Yes Allergies/Adverse Reactions: Allergies codeine [Codeine] Allergy (Severe, Verified 07/24/16 23:01) dizzy diphenhydramine HCl [From Benadryl] Allergy (Severe, Verified 07/24/16 23:01) Hives ibuprofen Allergy (Severe, Verified 07/24/16 23:01) Pain meloxicam [From Mobic] Allergy (Severe, Verified 07/24/16 23:01) itch oxycodone HCl [From OxyContin] Allergy (Severe, Verified 07/24/16 23:01) Nausea simvastatin Allergy (Severe, Verified 07/24/16 23:01) Pain amoxicillin Allergy (Verified 07/24/16 23:01) nabumetone Allergy (Verified 07/24/16 23:01) sulfamethoxazole [From Bactrim] Allergy (Verified 07/24/16 23:01) trimethoprim [From Bactrim] Allergy (Verified 07/24/16 23:01) venom-honey bee [bee venom (honey bee)] Allergy (Verified 07/24/16 23:01) azithromycin [From Zithromax] Adverse Reaction (Verified 07/24/16 23:01) Itching ciprofloxacin [From Cipro] Adverse Reaction (Verified 07/24/16 23:01) Hives ciprofloxacin HCl [From Cipro] Adverse Reaction (Verified 07/24/16 23:01) Hives Home Medications: HOME MEDICATIONS Esomeprazole Magnesium [Nexium] 20 mg PO DAILY 12/06/15 [Last Taken Unknown] Lactobacillus 3/Fos/Pantethine [Probiotic & Acidophilus Cap] 1 tab PO TID [Last Taken Unknown] Lecithin 1,200 mg PO DAILY 07/24/16 [Last Taken Unknown] [place] Oil/[place]-3 Fatty Acids [Fish Oil] 1,200 mg PO DAILY 07/24/16 [Last Taken Unknown] Cefuroxime Axetil [Ceftin] 500 mg PO BID #20 tab 07/25/16 [Last Taken Unknown] Tramadol HCl [Rybix Odt] 50 mg PO Q8H PRN #10 tab.rapdis 07/25/16 [Last Taken Unknown] Cetirizine HCl [Zyrtec] 10 mg PO DAILY #6 tab 07/29/16 [Last Taken Unknown] predniSONE [Prednisone] 2 tab PO DAILY #6 tab 07/29/16 [Last Taken Unknown] - History of Present Illness Narrative: Patient presents with approximately 2 days of chest pain, dizziness with nausea and vomiting and diarrhea and left-sided head pain. 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 Rates his symptoms as at least moderate in intensity and while he normally has migraines headaches he typically does not have the diarrhea with it. Timing of Headache: gradual, persistent Quality: Present: throbbing Severity Maximum: Present: moderate Severity-Currently: Present: moderate Headache frequency: Present: chronic headaches Modifying Factors - (Worsens): Reports: rest Associated Symptoms: Reports: nausea, vomiting, other - diarrhea Exacerbated by:: Reports: light, noise Review of Systems - Review of Systems Constitutional: Present: See HPI EYE: Present: no symptoms reported ENT: Present: no symptoms reported Respiratory: Present: no symptoms reported Cardiology: Present: chest pain Gastrointestinal/Abdominal: Present: nausea, vomiting, diarrhea Genitourinary: Present: no symptoms reported Musculoskeletal: Present: no symptoms reported Skin: Present: no symptoms reported Neurological: Present: headache, dizziness/light-headedness Endocrine: Present: no symptoms reported Hematologic/Lymphatic: Present: no symptoms reported Psych: Present: no symptoms reported - Patient's Past Medical History Patient History - Medical: Anemia, Anxiety, GERD, Migraines, Other Patient History - Cardiac/Respiratory: No pertinent hx, Hyperlipidemia Patient History - Cancer: No Hx of Cancer Patient History - Surgical Procedures: Other Patient History - Other: None - Family History Father Family History - Medical: Diabetes Type 2, Other Family History - Cardiac/Respiratory: Coronary Heart Disease, COPD, Hyperlipidemia Mother Family History - Medical: No pertinent hx Family History - Cardiac/Respiratory: No pertinent hx Sister Family History - Medical: - Social History Living Situations: home Abuse History: No History of abuse Psych History: No pertinent hx Smoking Status: Current every day smoker Alcohol Use: none Drug Use: none - Immunizations Immunizations Up to Date: Yes Hx Pneumococcal Vaccination: Yes History of Influenza Vaccine: Yes Physical Exam - Physical Exam General Appearance: Present: wd/wn, alert, moderate distress Head Exam: Present: normal inspection, no evidence of injury Eye Exam: Normal inspection: bilateral, PERRL: bilateral Ears, Nose, Throat: Present: normal ENT inspection, H, normal pharynx Neck: Present: normal inspection, nontender Respiratory: Present: no respiratory distress, normal breath sounds, no accessory muscle use, chest nontender, lungs clear Cardiovascular/Chest: Present: regular rate, rhythm, no murmur, normal peripheral pulses Gastrointestinal/Abdominal: Present: normal bowel sounds, nondistended, soft, no organomegaly, tenderness - in the epigastric region Rectal Exam: Present: deferred Back Exam: Present: normal inspection, normal range of motion Extremity Exam: Present: normal inspection, non-tender, no edema, normal range of motion Neurological Exam: Present: alert, oriented, normal mood/affect Skin Exam: Present: normal color, warm/dry Lymphatic Exam: Present: no adenopathy ED Progress - Vital Signs Vital Signs: Vital Signs 09/19/16 18:30 Temperature 36.5 C Pulse Rate 72 Respiratory 22 H Rate Blood Pressure 92/56 O2 Sat by Pulse 99 Oximetry - Progress/Reassessment Chief Complaint: Headache - Transfer of Care Physician Sign Out: Izaiah Amaro Receiving Physician: Devaughn Aiken Plan - Plan Plan: While this certainly could be an exacerbation over his migraines as well as diarrhea from his C. difficile infections patient is still going to get a fairly extensive workup given his headache, chest pain of uncertain etiology and nausea vomiting and diarrhea. Care will be turned over to Dr. Aiken and he will follow up on all the variety of tests and determine final disposition. Departure Clinical Impression: Vertigo Migraine Qualifiers: Migraine type: other Status migrainosus presence: without status migrainosus Intractability: intractable Qualified Code(s): G43.819 - Other migraine, intractable, without status migrainosus - Departure Disposition: Home self-care Condition: Good Instructions: Recurrent Migraine Headache, [id number], Nausea, Adult, Easy-to -Read Additional Instructions: Rest tonight. look for triggers to avoid. See [email or web address] and search migraine to find a list of triggers. Referrals: Chinyere Scott MD [Primary Care Provider] - <NelliMahadn - Last Filed: 09/20/16 06:08> Headache ER HPI - Immun/Allergies/Home Medications Immunizations: IMMUNIZATION HX Immunizations Up to Date Yes History of Influenza Vaccine Yes Hx Pneumococcal Vaccination Yes ED Progress - Vital Signs Vital Signs: Vital Signs 09/19/16 09/19/16 18:30 20:45 Temperature 36.5 C 36.5 C Pulse Rate 72 54 L Respiratory 22 H 14 Rate Blood Pressure 92/56 98/51 O2 Sat by Pulse 99 98 Oximetry - Progress/Reassessment Progress:: Improved - but only slighly Progress Note-Subjective: 09/19/16 21:35 Pt states his headache is left sided but is usually frontal. He is concerned that it may be related to a fall he had last week where he his his head on the left side. 09/19/16 21:40 Interaction with Tramadol on his med list and imitrex noted. Spoke with patient and he said it was given a some time in the past and he took 1-2 and has not taken any since that time. 09/20/16 06:03 Pt was improving 30 minutes after imitrex administration. I discussed with the patient about possibly getting a triptan for home migraine treatment. Pt will talk with his PCP.
[2016-09-19 19:50] LABS: Urine Bilirubin Negative (NEGATIVE); Urine Blood Negative /ul (NEGATIVE); Urine Ketone Negative (NEGATIVE); Urine Nitrite Negative (NEGATIVE); Urine Protein Negative (NEGATIVE); Urine Specific Gravity 1.015 SP.GR. (1.005-1.030); Urine Urobilinogen Normal (NORMAL)
[2016-09-19 19:54] LABS: ALT 23 U/L (19-67); AST 13 U/L (0-48); Albumin * 4.2 gm/dl (3.4-5.0); Alkaline Phosphatase * 81 U/L (50-170); Anion Gap 16.9 mmol/L (6.8-13.8); BUN/Creatinine Ratio 15.7 (9.0-21.6); Bilirubin, Total 0.5 mg/dL (0.0-1.1); Blood Urea Nitrogen 14 mg/dL (6-23); Ca. Corrected For Albumin 9.5 mg/dL (8.4-10.2); Carbon Dioxide 21.8 mmol/L (24-32.6); Chloride 105 mmol/L (97-106); Glucose * 102 mg/dL (70-110); Magnesium 1.8 mg/dL (1.2-2.8); Potassium 3.7 mmol/L (3.4-4.6); Sodium 140 mmol/L (132-142); Total Protein 7.8 gm/dL (6.2-8.2); Troponin I Less than 0.017 ng/ml (0.00-0.10)
[2016-09-19 19:59] LABS: Urine Amorphous Sediment Moderate - 2+ (NONE-FEW); Urine Appearance Slightly Cloudy; Urine Bacteria 3+; Urine Color Yellow; Urine RBC None Seen /hpf (0-5); Urine WBC None Seen /hpf (0-5)
[2016-09-19] MEDS ORDERED: BENZTROPINE MESYLATE 1 MG/ML AMPUL IV ONE (20:00)
[2016-09-19 20:05] LABS: Cocaine Ur Negative (NEGATIVE); Urine Barbiturate Negative (NEGATIVE); Urine Benzodiazepines Negative (NEGATIVE); Urine Opiates Negative (NEGATIVE); Urine PCP Negative (NEGATIVE); Urine THC Negative (NEGATIVE)
[2016-09-19] MEDS ORDERED: METHYLPREDNISOLONE SOD SUCC/PF 125 MG/2 ML VIAL IV ONE (21:37)
[2016-09-19] MEDS ORDERED: SUMAtriptan SUCCINATE 6 MG/0.5 ML VIAL SC ONE ×2 (21:37→21:43)
[2016-09-19] MEDS ORDERED: METHYLPREDNISOLONE SOD SUCC/PF 125 MG/2 ML VIAL ONE (21:43)
[2016-09-19 22:20] VITALS: BP 99/59
== END 2016-09-19 22:34 | disposition home or self-care (01) ==
LOC: ER 18:14
DX: G43.819 Other migraine, intractable, without status migrainosus (principal); R42 Dizziness and giddiness; F17.200 Nicotine dependence, unspecified, uncomplicated

== ENCOUNTER 2016-09-20 13:29 | Emergency (ER) | payer BC, OTHER ==
[2016-09-20 13:36] VITALS: BP 112/75
--- NOTE | 2016-09-20 14:06 | ERNOTE ---
GI Bleeding/Rectal Pain ER Date of Service: 09/20/16 Presenting Symptoms: dark/tarry stools Time Seen by Provider: 09/20/16 13:39 Source: patient Exam Limitations: no limitations Immunizations: IMMUNIZATION HX Immunizations Up to Date Yes History of Influenza Vaccine Yes Hx Pneumococcal Vaccination Yes Allergies/Adverse Reactions: Allergies codeine [Codeine] Allergy (Severe, Verified 09/20/16 13:36) dizzy diphenhydramine HCl [From Benadryl] Allergy (Severe, Verified 09/20/16 13:36) Hives ibuprofen Allergy (Severe, Verified 09/20/16 13:36) Pain meloxicam [From Mobic] Allergy (Severe, Verified 09/20/16 13:36) itch oxycodone HCl [From OxyContin] Allergy (Severe, Verified 09/20/16 13:36) Nausea simvastatin Allergy (Severe, Verified 09/20/16 13:36) Pain amoxicillin Allergy (Verified 09/20/16 13:36) nabumetone Allergy (Verified 09/20/16 13:36) sulfamethoxazole [From Bactrim] Allergy (Verified 09/20/16 13:36) trimethoprim [From Bactrim] Allergy (Verified 09/20/16 13:36) venom-honey bee [bee venom (honey bee)] Allergy (Verified 09/20/16 13:36) azithromycin [From Zithromax] Adverse Reaction (Verified 09/20/16 13:36) Itching ciprofloxacin [From Cipro] Adverse Reaction (Verified 09/20/16 13:36) Hives ciprofloxacin HCl [From Cipro] Adverse Reaction (Verified 09/20/16 13:36) Hives Home Medications: HOME MEDICATIONS Esomeprazole Magnesium [Nexium] 20 mg PO DAILY 12/06/15 [Last Taken Unknown] Lactobacillus 3/Fos/Pantethine [Probiotic & Acidophilus Cap] 1 tab PO TID [Last Taken Unknown] Lecithin 1,200 mg PO DAILY 07/24/16 [Last Taken Unknown] [place] Oil/[place]-3 Fatty Acids [Fish Oil] 1,200 mg PO DAILY 07/24/16 [Last Taken Unknown] Cefuroxime Axetil [Ceftin] 500 mg PO BID #20 tab 07/25/16 [Last Taken Unknown] Tramadol HCl [Rybix Odt] 50 mg PO Q8H PRN #10 tab.rapdis 07/25/16 [Last Taken Unknown] Cetirizine HCl [Zyrtec] 10 mg PO DAILY #6 tab 07/29/16 [Last Taken Unknown] predniSONE [Prednisone] 2 tab PO DAILY #6 tab 07/29/16 [Last Taken Unknown] Ondansetron [Zofran Odt] 4 mg PO Q6H PRN #20 tab 09/20/16 [Last Taken Unknown] Narrative: Pt. comes in with diffuse and L sided abd pain intermittently for years with last flare starting the day before yesterday. Pt. states that the pain is accompanied by nausea, vomiting and diarrhea. Pt. denies any SOB, CP, fever, but states that his stools are black with a green tint. Pt. has a hx of chronic illness and stomach issues and chronic pain. Pt. also states that he has been taking Pepto bismol and was seen last night for the same symptoms and a migraine and was fully worked up with no acute illnness found. Pt. denies migraine at this time. Review of Systems - Review of Systems Constitutional: Present: no symptoms reported. Absent: recent illness, fever, chills, weakness, fatigue, malaise EYE: Present: no symptoms reported ENT: Present: no symptoms reported Respiratory: Present: no symptoms reported. Absent: shortness of breath, cough , wheezing Cardiology: Present: no symptoms reported. Absent: chest pain, palpitations, edema Gastrointestinal/Abdominal: Present: nausea, vomiting, diarrhea, abdominal pain , eating less, drinking less, other - black sticky stools Genitourinary: Present: no symptoms reported. Absent: frequency, pain, dysuria , hematuria, decreased urinary output Musculoskeletal: Present: no symptoms reported. Absent: back pain, muscle stiffness, neck pain, joint pain Skin: Present: no symptoms reported. Absent: rash, change in color Neurological: Present: no symptoms reported. Absent: headache, dizziness/light- headedness, numbness, tingling All Other Systems: All systems neg except as marked - Patient's Past Medical History Patient History - Medical: Anemia, Anxiety, GERD, Migraines Patient History - Cardiac/Respiratory: Hyperlipidemia Patient History - Cancer: No Hx of Cancer Patient History - Surgical Procedures: Other Patient History - Other: None - Family History Father Family History - Medical: Diabetes Type 2, Other Family History - Cardiac/Respiratory: Coronary Heart Disease, COPD, Hyperlipidemia Mother Family History - Medical: No pertinent hx Family History - Cardiac/Respiratory: No pertinent hx Sister Family History - Medical: - Social History Living Situations: home Abuse History: No History of abuse Psych History: No pertinent hx Smoking Status: Current every day smoker Have you smoked in the past 12 months: Yes Alcohol Use: none Drug Use: none - Immunizations Immunizations Up to Date: Yes Hx Pneumococcal Vaccination: Yes History of Influenza Vaccine: Yes Physical Exam - Physical Exam General Appearance: Present: wd/wn, alert, no apparent distress Head Exam: Present: normal inspection, no evidence of injury Eye Exam: Normal inspection: bilateral, PERRL: bilateral, EOMI: bilateral Respiratory: Present: no respiratory distress, normal breath sounds, no accessory muscle use, chest nontender, lungs clear Cardiovascular/Chest: Present: regular rate, rhythm, no murmur, normal peripheral pulses Gastrointestinal/Abdominal: Present: normal bowel sounds, nondistended, soft, no organomegaly, tenderness - LUQ. Absent: rebound, McBurney sign, Obturator sign, Mendoza sign, Psoas sign, mass, hernia Back Exam: Present: normal inspection, normal range of motion, no CVA tenderness , no vertebral tenderness Extremity Exam: Present: normal inspection, non-tender, normal range of motion, no edema Neurological Exam: Present: alert, oriented, no motor/sensory deficits, other - anxious Skin Exam: Present: normal color, warm/dry. Absent: pallor, skin rash ED Progress - Date and Time Seen: Date and Time: 09/20/16 13:47 As pt. had full workup less than 24 hours ago and black stools are most likely from pepto bismol feel that pt needs to see physical therapist clinic director for chronic NVD with abd pain and stool cultures so will send pt. with outpatient labs, zofran for chronic nausea and will have pt. stop pepto nd follow up with his PCP for further referral to GI. - Results and Orders Patient's Lab Results:: I have reviewed the patient's lab results. Results and Orders: from yesterday unremarkable - Vital Signs Patient's Vital Signs:: I have reviewed the patient's vital signs. Vital Signs: Vital Signs 09/20/16 13:33 Temperature 37.3 C Pulse Rate 84 Respiratory 12 Rate Blood Pressure 112/75 O2 Sat by Pulse 97 Oximetry - Progress/Reassessment Chief Complaint: GI Bleed Departure Clinical Impression: Diarrhea associated with pseudomembranous colitis, Recurrent abdominal pain, Chronic nausea - Departure Disposition: Home self-care Condition: Good Instructions: Chronic Diarrhea, Irritable Bowel Syndrome, Adult, Ulcerative Colitis, Adult, Low-Fiber Diet Additional Instructions: Please follow up with Dr Scott and get referral to GI doctor for chronic nausea, vomiting and diarrhea. Please stop pepto bismol. Referrals: Chinyere Scott MD [Primary Care Provider] - Prescriptions: Ondansetron [Zofran Odt] 4 mg PO Q6H PRN #20 tab PRN Reason: Nausea
== END 2016-09-20 14:00 | disposition home or self-care (01) ==
LOC: ER 13:29
DX: K52.9 Noninfective gastroenteritis and colitis, unspecified (principal); A04.7 Enterocolitis due to Clostridium difficile; R10.9 Unspecified abdominal pain; R11.0 Nausea; D64.9 Anemia, unspecified; F41.9 Anxiety disorder, unspecified; K21.9 Gastro-esophageal reflux disease without esophagitis; E78.5 Hyperlipidemia, unspecified; F17.200 Nicotine dependence, unspecified, uncomplicated

== ENCOUNTER 2016-10-14 17:59 | Emergency (ER) | payer BC, OTHER ==
--- NOTE | 2016-10-14 18:34 | ERNOTE ---
Medical Problem HPI - Narrative Date of Service: 10/14/16 - General Chief Complaint: Neck Pain/Injury Time Seen by Provider: 10/14/16 18:17 Source: patient, family, RN notes reviewed, old records Exam Limitations: no limitations - Immun/Allergies/Home Medications Immunizations: IMMUNIZATION HX Immunizations Up to Date Yes History of Influenza Vaccine Yes Hx Pneumococcal Vaccination Yes Allergies/Adverse Reactions: Allergies codeine [Codeine] Allergy (Severe, Verified 10/14/16 18:07) dizzy diphenhydramine HCl [From Benadryl] Allergy (Severe, Verified 10/14/16 18:07) Hives ibuprofen Allergy (Severe, Verified 10/14/16 18:07) Pain meloxicam [From Mobic] Allergy (Severe, Verified 10/14/16 18:07) itch oxycodone HCl [From OxyContin] Allergy (Severe, Verified 10/14/16 18:07) Nausea simvastatin Allergy (Severe, Verified 10/14/16 18:07) Pain nabumetone Allergy (Verified 10/14/16 18:07) sulfamethoxazole [From Bactrim] Allergy (Verified 10/14/16 18:07) trimethoprim [From Bactrim] Allergy (Verified 10/14/16 18:07) venom-honey bee [bee venom (honey bee)] Allergy (Verified 10/14/16 18:07) azithromycin [From Zithromax] Adverse Reaction (Verified 10/14/16 18:07) Itching ciprofloxacin [From Cipro] Adverse Reaction (Verified 10/14/16 18:07) Hives ciprofloxacin HCl [From Cipro] Adverse Reaction (Verified 10/14/16 18:07) Hives Home Medications: HOME MEDICATIONS Esomeprazole Magnesium [Nexium] 20 mg PO DAILY 12/06/15 [Last Taken Unknown] Lactobacillus 3/Fos/Pantethine [Probiotic & Acidophilus Cap] 1 tab PO TID [Last Taken Unknown] Lecithin 1,200 mg PO DAILY 07/24/16 [Last Taken Unknown] [place] Oil/[place]-3 Fatty Acids [Fish Oil] 1,200 mg PO DAILY 07/24/16 [Last Taken Unknown] Cetirizine HCl [Zyrtec] 10 mg PO DAILY #6 tab 07/29/16 [Last Taken Unknown] Ondansetron [Zofran Odt] 4 mg PO Q6H PRN #20 tab 09/20/16 [Last Taken Unknown] Clindamycin HCl [Cleocin HCl] 300 mg PO Q6H 10/14/16 [Last Taken Unknown] - History of Present History Narrative: 40 y/o male brought to the ED by his for pain in the anterior portion of his neck and difficulty swallowing. He has been on clindamycin for strep throat since 10/08/16. He states his throat feels swollen. He denies fevers. Date (Duration): 10/11/16 Timing: getting worse Review of Systems - Review of Systems Constitutional: Present: recent illness, malaise. Absent: fever EYE: Present: no symptoms reported ENT: Present: throat swelling. Absent: nose congestion, sore throat Respiratory: Present: cough. Absent: shortness of breath, stridor Cardiology: Present: no symptoms reported Gastrointestinal/Abdominal: Present: eating less, drinking less. Absent: vomiting Genitourinary: Present: no symptoms reported Musculoskeletal: Present: neck pain. Absent: back pain, joint pain Skin: Absent: rash, lesions, lumps Neurological: Absent: headache, dizziness/light-headedness Endocrine: Present: no symptoms reported Hematologic/Lymphatic: Present: no symptoms reported Psych: Present: anxiety - Patient's Past Medical History Patient History - Medical: Anemia, Anxiety, GERD, Migraines Patient History - Cardiac/Respiratory: Hyperlipidemia Patient History - Cancer: No Hx of Cancer Patient History - Surgical Procedures: Other, Orthopedic Patient History - Other: None - Family History Father Family History - Medical: Diabetes Type 2, Other Family History - Cardiac/Respiratory: Coronary Heart Disease, COPD, Hyperlipidemia Mother Family History - Medical: No pertinent hx Family History - Cardiac/Respiratory: No pertinent hx Sister Family History - Medical: - Social History Living Situations: home Abuse History: No History of abuse Psych History: No pertinent hx Smoking Status: Current every day smoker Alcohol Use: none Drug Use: none - Immunizations Immunizations Up to Date: Yes Hx Pneumococcal Vaccination: Yes History of Influenza Vaccine: Yes Physical Exam - Physical Exam General Appearance: Present: wd/wn, alert, no apparent distress, anxious Head Exam: Present: normal inspection, no evidence of injury Eye Exam: Normal inspection: bilateral Ears, Nose, Throat: Present: pharyngeal erythema, tonsillar swelling. Absent: abnormal TM (R), abnormal TM (L), pharyngeal swelling, tonsillar exudate Neck: Present: supple, limited range of motion, tender lateral - and anteriorly. Absent: lymphadenopathy (R), lymphadenopathy (L), thyromegaly Respiratory: Present: no respiratory distress, normal breath sounds, no accessory muscle use, lungs clear Cardiovascular/Chest: Present: regular rate, rhythm, no murmur, normal peripheral pulses Neurological Exam: Present: alert, oriented, normal mood/affect, no motor/ sensory deficits Skin Exam: Present: normal color, warm/dry ED Progress - Results and Orders Patient's Lab Results:: I have reviewed the patient's lab results. - Vital Signs Patient's Vital Signs:: I have reviewed the patient's vital signs. Vital Signs: Vital Signs 10/14/16 18:03 Temperature 36.4 C L Pulse Rate 67 Respiratory 12 Rate Blood Pressure 143/52 O2 Sat by Pulse 98 Oximetry - X-Ray X-Ray #1 X-Ray: soft tissue neck Interpretation: Reviewed by me X-ray Comments: TECHNIQUE: AP and lateral soft tissue views of the neck obtained. FINDINGS: Epiglottis is normal. There is no airway compromise. No prevertebral soft tissue swelling identified. On the AP view there is a suggestion of some mild subglottic narrowing nonspecific. Follow-up with neck CT as clinically indicated. IMPRESSION: MINIMAL SUBGLOTTIC NARROWING ON THE AP VIEW NONSPECIFIC. OTHERWISE UNREMARKABLE SOFT TISSUE VIEW OF THE NECK. FOLLOW-UP NECK CT WITH CONTRAST CLINICALLY INDICATED. Electronically signed by Izaiah Montero M.D.. - Progress/Reassessment Chief Complaint: Neck Pain/Injury Progress Note-Subjective: 10/14/16 20:27 Patient is still positive for strep and symptomatic despite 6 days of clindamycin. He has allergies listed to amoxicillin and Cipro, and reports he could not take the cefdinir that he was prescribed last week because his pharmacy has cephalosporins as an allergy as well. He is unclear about his reactions to all of these meds. Test dose of PenVK given. Will monitor for reaction and given IM Sarah Beth if tolerates well. 10/14/16 21:15 No change in condition since PenVK given. IM Sarah Beth ordered. Departure - Departure Clinical Impression: Streptococcal pharyngitis Disposition: Home self-care Condition: Stable Instructions: Strep Throat, [id number] Additional Instructions: Drink plenty of water Stop Clindamycin Remove penicillin and amoxicillin from your drug allergy lists - you are not allergic Referrals: Chinyere Scott MD [Primary Care Provider] -
[2016-10-14 18:42] LABS: Hematocrit 37.7 % (42.0-52.0); Hemoglobin 12.9 gm/dL (13.5-18.0); Mean Cell Volume 87.5 fl (78-100); Mean Corpuscular Hemoglobin 29.9 pg (27-31); Mean Corpuscular Hgb Conc 34.2 g/dl (32-36); Mean Platelet Volume 9.1 fl (6.0-9.5); Neutrophil # 3.9 K/mm3 (1.3-6.0); Neutrophil % 50.9 % (42-75.0); Platelet Count 261 K/mm3 (150-450); Red Blood Count 4.31 M/mm3 (4.7-6.0); Red Cell Distribution Width 12.6 % (11.5-14.0); White Blood Count 7.7 K/mm3 (4.0-10.5)
[2016-10-14 19:04] LABS: ALT 38 U/L (19-67); AST 14 U/L (0-48); Albumin * 4.1 gm/dl (3.4-5.0); Alkaline Phosphatase * 89 U/L (50-170); Anion Gap 17.7 mmol/L (6.8-13.8); BUN/Creatinine Ratio 17.5 (9.0-21.6); Bilirubin, Total 0.3 mg/dL (0.0-1.1); Blood Urea Nitrogen 17 mg/dL (6-23); Ca. Corrected For Albumin 8.6 mg/dL (8.4-10.2); Carbon Dioxide 24.4 mmol/L (24-32.6); Chloride 100 mmol/L (97-106); Glucose * 103 mg/dL (70-110); Potassium 4.1 mmol/L (3.4-4.6); Sodium 138 mmol/L (132-142); TSH * 2.004 uIU/mL (0.358-3.74); Total Protein 7.8 gm/dL (6.2-8.2)
[2016-10-14] MEDS ORDERED: PENICILLIN V POTASSIUM 250 MG TABLET PO ONE (20:18)
[2016-10-14] MEDS ORDERED: PENICILLIN V POTASSIUM 250 MG TABLET ONE (20:21)
[2016-10-14] MEDS ORDERED: PENICILLIN G BENZATHINE 2 ML SYRG IM ONE ×2 (21:14→21:15)
[2016-10-14 21:23] VITALS: BP 109/57
== END 2016-10-14 21:40 | disposition home or self-care (01) ==
LOC: ER 17:59
DX: J02.0 Streptococcal pharyngitis (principal); D64.9 Anemia, unspecified; K21.9 Gastro-esophageal reflux disease without esophagitis; E78.5 Hyperlipidemia, unspecified; F17.200 Nicotine dependence, unspecified, uncomplicated

== ENCOUNTER 2016-12-20 07:07 | Emergency (ER) | payer BC, OTHER ==
--- NOTE | 2016-12-20 07:53 | ERNOTE ---
<Devaughn Aiken - Last Filed: 12/20/16 08:08> Abdominal HPI - General Chief Complaint: Abdominal Pain Time Seen by Provider: 12/20/16 07:41 Source: patient, family Exam Limitations: no limitations - Immun/Allergies/Home Medications Immunizatons: IMMUNIZATION HX Immunizations Up to Date Yes History of Influenza Vaccine Yes Hx Pneumococcal Vaccination Yes Allergies/Adverse Reactions: Allergies codeine [Codeine] Allergy (Severe, Verified 12/20/16 07:25) dizzy diphenhydramine HCl [From Benadryl] Allergy (Severe, Verified 12/20/16 07:25) Hives ibuprofen Allergy (Severe, Verified 12/20/16 07:25) Pain meloxicam [From Mobic] Allergy (Severe, Verified 12/20/16 07:25) itch oxycodone HCl [From OxyContin] Allergy (Severe, Verified 12/20/16 07:25) Nausea simvastatin Allergy (Severe, Verified 12/20/16 07:25) Pain nabumetone Allergy (Verified 12/20/16 07:25) sulfamethoxazole [From Bactrim] Allergy (Verified 12/20/16 07:25) trimethoprim [From Bactrim] Allergy (Verified 12/20/16 07:25) venom-honey bee [bee venom (honey bee)] Allergy (Verified 12/20/16 07:25) azithromycin [From Zithromax] Adverse Reaction (Verified 12/20/16 07:25) Itching ciprofloxacin [From Cipro] Adverse Reaction (Verified 12/20/16 07:25) Hives ciprofloxacin HCl [From Cipro] Adverse Reaction (Verified 12/20/16 07:25) Hives Home Medications: HOME MEDICATIONS Esomeprazole Magnesium [Nexium] 20 mg PO DAILY 12/06/15 [Last Taken Unknown] Lactobacillus 3/Fos/Pantethine [Probiotic & Acidophilus Cap] 1 tab PO TID [Last Taken Unknown] Lecithin 1,200 mg PO DAILY 07/24/16 [Last Taken Unknown] [place] Oil/[place]-3 Fatty Acids [Fish Oil] 1,200 mg PO DAILY 07/24/16 [Last Taken Unknown] Cetirizine HCl [Zyrtec] 10 mg PO DAILY #6 tab 07/29/16 [Last Taken Unknown] Ondansetron [Zofran Odt] 4 mg PO Q6H PRN #20 tab 09/20/16 [Last Taken Unknown] Amox Tr/Potassium Clavulanate [Augmentin 875-125 Tablet] 875 mg PO Q12H #20 tab 12/20/16 [Last Taken Unknown] - History of Present Illness Narrative: Pt states he has been weak for a week and sleeping excessively. 2 days ago he began to have left sided abdominal/ flank pain. Timing: getting worse Quality: moderate, severe, stabbing, throbbing Activities at Onset: none Associated Symptoms: Present: diaphoresis - some. Absent: diarrhea-gross blood , vomiting Prior Abdominal Problems: Absent: recent trauma Review of Systems - Review of Systems Constitutional: Absent: recent illness EYE: Present: no symptoms reported ENT: Present: no symptoms reported Respiratory: Absent: shortness of breath Cardiology: Absent: chest pain Gastrointestinal/Abdominal: Present: other - denies dark or tar like stools. Absent: nausea, vomiting, constipation Genitourinary: Absent: frequency, pain, dysuria Musculoskeletal: Present: muscle pain Skin: Absent: rash, change in color Neurological: Absent: no symptoms reported, anxiety Endocrine: Present: no symptoms reported Hematologic/Lymphatic: Present: no symptoms reported Psych: Present: no symptoms reported - Patient's Past Medical History Patient History - Medical: Anemia, Anxiety, GERD, Migraines, Other Patient History - Cardiac/Respiratory: Hyperlipidemia Patient History - Cancer: No Hx of Cancer Patient History - Surgical Procedures: Other, Orthopedic Patient History - Other: None - Family History Father Family History - Medical: Diabetes Type 2, Other Family History - Cardiac/Respiratory: Coronary Heart Disease, COPD, Hyperlipidemia Mother Family History - Medical: No pertinent hx Family History - Cardiac/Respiratory: No pertinent hx Sister Family History - Medical: - Social History Abuse History: No History of abuse Psych History: No pertinent hx Smoking Status: Never smoker - Immunizations Immunizations Up to Date: Yes Hx Pneumococcal Vaccination: Yes History of Influenza Vaccine: Yes Physical Exam - Physical Exam General Appearance: Present: wd/wn, moderate distress Head Exam: Present: normal inspection, no evidence of injury Eye Exam: Normal inspection: bilateral Neck: Present: normal inspection, nontender, supple Respiratory: Present: no respiratory distress, no accessory muscle use Cardiovascular/Chest: Present: regular rate, rhythm Gastrointestinal/Abdominal: Present: normal bowel sounds, tenderness - far lateral left flank, no anterior abdomen tenderness, no radiation with palpation. Absent: distended, rebound Back Exam: Present: no CVA tenderness, decreased range of motion - pain with flexion Extremity Exam: Present: normal inspection, normal range of motion Neurological Exam: Present: alert, oriented, no motor/sensory deficits Skin Exam: Present: normal color, warm/dry Lymphatic Exam: Present: no adenopathy ED Progress - Vital Signs Vital Signs: Vital Signs 12/20/16 07:20 Temperature 36.7 C Pulse Rate 76 Respiratory 14 Rate Blood Pressure 98/72 O2 Sat by Pulse 98 Oximetry - Progress/Reassessment Chief Complaint: Abdominal Pain - Transfer of Care Physician Sign Out: Devaughn Aiken Receiving Physician: Izaiha Amaro Pending Results: Labs, X-ray results Expected Disposition: Discharge Departure Clinical Impression: Streptococcal pharyngitis Abdominal pain Qualifiers: Abdominal location: left upper quadrant Qualified Code(s): R10.12 - Left upper quadrant pain - Departure Disposition: Home self-care Condition: Fair Instructions: Strep Throat, [id number], Infectious Mononucleosis, Easy-to- Read, Constipation, Adult, [id number] Referrals: Chinyere Scott MD [Primary Care Provider] - Prescriptions: Amox Tr/Potassium Clavulanate [Augmentin 875-125 Tablet] 875 mg PO Q12H #20 tab <Izaiah Amaro - Last Filed: 12/20/16 09:17> Abdominal HPI - Immun/Allergies/Home Medications Immunizatons: IMMUNIZATION HX Immunizations Up to Date Yes History of Influenza Vaccine Yes Hx Pneumococcal Vaccination Yes ED Progress - Results and Orders Patient's Lab Results:: I have reviewed the patient's lab results. - Vital Signs Patient's Vital Signs:: I have reviewed the patient's vital signs. Vital Signs: Vital Signs 12/20/16 07:20 Temperature 36.7 C Pulse Rate 76 Respiratory 14 Rate Blood Pressure 98/72 O2 Sat by Pulse 98 Oximetry - X-Ray X-Ray #1 X-Ray: abdomen Interpretation: Reviewed by me Plan - Plan Plan: I am unclear as to why patient's strep infection was not treated when it was discovered 2 months ago. I suspect that the general overall feeling of body aches, sore throat and mild tenderness in the spleen might be secondary to the chronic strep infection as well as what he states is infectious mono which was discovered at the same time. Patient will be started on Augmentin 875 and he needs to follow-up with his family physician in approximately 2 weeks.
[2016-12-20 08:23] LABS: Hematocrit 41.3 % (42.0-52.0); Hemoglobin 14.1 gm/dL (13.5-18.0); Mean Cell Volume 88.4 fl (78-100); Mean Corpuscular Hemoglobin 30.2 pg (27-31); Mean Corpuscular Hgb Conc 34.1 g/dl (32-36); Mean Platelet Volume 9.5 fl (6.0-9.5); Neutrophil # 3.9 K/mm3 (1.3-6.0); Neutrophil % 52.5 % (42-75.0); Platelet Count 239 K/mm3 (150-450); Red Blood Count 4.67 M/mm3 (4.7-6.0); Red Cell Distribution Width 12.4 % (11.5-14.0); White Blood Count 7.4 K/mm3 (4.0-10.5)
[2016-12-20 08:23] LABS: Urine Bilirubin Negative (NEGATIVE); Urine Blood Negative /ul (NEGATIVE); Urine Ketone Negative (NEGATIVE); Urine Nitrite Negative (NEGATIVE); Urine Protein Negative (NEGATIVE); Urine Urobilinogen Normal (NORMAL)
[2016-12-20 08:36] LABS: Albumin * 4.3 gm/dl (3.4-5.0); Anion Gap 13.7 mmol/L (6.8-13.8); BUN/Creatinine Ratio 16.5 (9.0-21.6); Bilirubin, Total 0.5 mg/dL (0.0-1.1); Ca. Corrected For Albumin 9.2 mg/dL (8.4-10.2); Calcium * 9.8 mg/dL (7.9-10.9); Carbon Dioxide 25.7 mmol/L (24-32.6); Potassium 4.4 mmol/L (3.4-4.6); Total Protein 8.1 gm/dL (6.2-8.2)
[2016-12-20 08:45] LABS: Urine Appearance Clear; Urine Bacteria 1+; Urine Color Yellow; Urine RBC TRACE /hpf (0-5); Urine WBC 0-5 /hpf (0-5)
[2016-12-20 12:50] VITALS: BP 112/70
== END 2016-12-20 09:26 | disposition home or self-care (01) ==
LOC: ER 07:07
DX: J02.0 Streptococcal pharyngitis (principal); R10.12 Left upper quadrant pain

== ENCOUNTER 2017-03-27 05:49 | Emergency (ER) | payer BC, OTHER ==
[2017-03-27] MEDS ORDERED: DICYCLOMINE HCL 10 MG/ML AMPUL IM ONE ×2 (06:12→06:42)
[2017-03-27] MEDS ORDERED: NORMAL SALINE 1,000 ML IV ONE ×2 (06:12→07:20)
[2017-03-27] MEDS ORDERED: ACETAMINOPHEN 500 MG TABLET PO ONE (06:16)
--- NOTE | 2017-03-27 06:17 | ERNOTE ---
Medical Problem HPI - Narrative Date of Service: 03/27/17 - General Chief Complaint: General Assessment Time Seen by Provider: 03/27/17 05:57 Source: patient Exam Limitations: no limitations - Immun/Allergies/Home Medications Immunizations: IMMUNIZATION HX Immunizations Up to Date Yes History of Influenza Vaccine No Hx Pneumococcal Vaccination No Allergies/Adverse Reactions: Allergies codeine [Codeine] Allergy (Severe, Verified 03/27/17 06:03) dizzy diphenhydramine HCl [From Benadryl] Allergy (Severe, Verified 03/27/17 06:03) Hives ibuprofen Allergy (Severe, Verified 03/27/17 06:03) Pain meloxicam [From Mobic] Allergy (Severe, Verified 03/27/17 06:03) itch simvastatin Allergy (Severe, Verified 03/27/17 06:03) Pain clavulanic acid [From Augmentin] Allergy (Verified 03/27/17 06:03) Hives nabumetone Allergy (Verified 03/27/17 06:03) sulfamethoxazole [From Bactrim] Allergy (Verified 03/27/17 06:03) trimethoprim [From Bactrim] Allergy (Verified 03/27/17 06:03) venom-honey bee [bee venom (honey bee)] Allergy (Verified 03/27/17 06:03) azithromycin [From Zithromax] Adverse Reaction (Verified 03/27/17 06:03) Itching ciprofloxacin [From Cipro] Adverse Reaction (Verified 03/27/17 06:03) Hives ciprofloxacin HCl [From Cipro] Adverse Reaction (Verified 03/27/17 06:03) Hives Home Medications: HOME MEDICATIONS Esomeprazole Magnesium [Nexium] 20 mg PO DAILY 12/06/15 [Last Taken Unknown] Lactobacillus 3/Fos/Pantethine [Probiotic & Acidophilus Cap] 1 tab PO TID [Last Taken Unknown] Lecithin 1,200 mg PO DAILY 07/24/16 [Last Taken Unknown] [place] Oil/[place]romo-3 Fatty Acids [Fish Oil] 1,200 mg PO DAILY 07/24/16 [Last Taken Unknown] Cetirizine HCl [Zyrtec] 10 mg PO DAILY #6 tab 07/29/16 [Last Taken Unknown] Ondansetron [Zofran Odt] 4 mg PO Q6H PRN #20 tab 09/20/16 [Last Taken Unknown] Dicyclomine HCl [Bentyl] 20 mg PO TID PRN #15 tablet 03/27/17 [Last Taken Unknown] - History of Present History Narrative: 41 year old that has been having diarrhea since Monday. Complaints of abdominal cramping, but no vomiting. Generalized body aching. Denies any fevers or chills. Two weeks ago underwent a tonsillectomy. Date (Duration): 03/27/17 Time (Timing): 06:15 Timing: intermittent Severity: moderate Modifying Factors - (Improves): Present: other - none Modifying Factors - (Worsens): Present: other - none Review of Systems - Review of Systems Constitutional: Present: See HPI EYE: Present: no symptoms reported ENT: Present: no symptoms reported Respiratory: Present: no symptoms reported Cardiology: Present: no symptoms reported Gastrointestinal/Abdominal: Present: no symptoms reported Genitourinary: Present: no symptoms reported Musculoskeletal: Present: See HPI Skin: Present: no symptoms reported Neurological: Present: no symptoms reported Endocrine: Present: no symptoms reported Hematologic/Lymphatic: Present: no symptoms reported - Patient's Past Medical History Patient History - Medical: Anemia, Anxiety, GERD, Migraines Patient History - Cardiac/Respiratory: Hyperlipidemia Patient History - Cancer: No Hx of Cancer Patient History - Surgical Procedures: T & A, Other, Orthopedic Patient History - Other: None - Family History Father Family History - Medical: Diabetes Type 2, Other Family History - Cardiac/Respiratory: Coronary Heart Disease, COPD, Hyperlipidemia Mother Family History - Medical: No pertinent hx Family History - Cardiac/Respiratory: No pertinent hx Sister Family History - Medical: - Social History Living Situations: spouse Abuse History: No History of abuse Psych History: Hx of Anxiety Smoking Status: Current every day smoker Alcohol Use: none Drug Use: none - Immunizations Immunizations Up to Date: Yes Hx Pneumococcal Vaccination: No History of Influenza Vaccine: No Physical Exam - Physical Exam General Appearance: Present: no apparent distress Head Exam: Present: normal inspection Eye Exam: Normal inspection: bilateral Ears, Nose, Throat: Present: normal ENT inspection Neck: Present: normal inspection Respiratory: Present: no respiratory distress Cardiovascular/Chest: Present: regular rate, rhythm Gastrointestinal/Abdominal: Present: nontender, nondistended, soft, no organomegaly Back Exam: Present: normal inspection Extremity Exam: Present: normal inspection Neurological Exam: Present: alert, oriented, normal mood/affect Skin Exam: Present: normal color ED Progress - Results and Orders Patient's Lab Results:: I have reviewed the patient's lab results. - Vital Signs Patient's Vital Signs:: I have reviewed the patient's vital signs. Vital Signs: Vital Signs 03/27/17 05:55 Temperature 36.7 C Pulse Rate 69 Respiratory 14 Rate Blood Pressure 110/68 O2 Sat by Pulse 98 Oximetry - Progress/Reassessment Chief Complaint: General Assessment Progress:: Improved Progress Note-Subjective: 03/27/17 07:15 Feeling better after IV fluids and medication. Departure Clinical Impression: Viral enteritis - Departure Disposition: Home self-care Condition: Good Instructions: Viral Gastroenteritis, Adult, [id number] Print Language: [place] Referrals: Chinyere Scott MD [Primary Care Provider] - Prescriptions: Dicyclomine HCl [Bentyl] 20 mg PO TID PRN #15 tablet PRN Reason: Pain
[2017-03-27 06:43] LABS: BUN/Creatinine Ratio 11.1 (9.0-21.6); Calcium * 9.8 mg/dL (7.9-10.9); Carbon Dioxide 25.7 mmol/L (24-32.6); Potassium 3.7 mmol/L (3.4-4.6)
[2017-03-27 06:50] LABS: Urine Appearance Cloudy; Urine Bilirubin Negative (NEGATIVE); Urine Blood Negative /ul (NEGATIVE); Urine Color Yellow; Urine Ketone Negative (NEGATIVE); Urine Nitrite Negative (NEGATIVE); Urine Protein Negative (NEGATIVE); Urine RBC None Seen /hpf (0-5); Urine Specific Gravity >=1.030 SP.GR. (1.005-1.030); Urine Urobilinogen Normal (NORMAL); Urine WBC 0-5 /hpf (0-5)
[2017-03-27 06:51] LABS: Urine Bacteria None Seen; Urine Mucus Many - 3+
[2017-03-27 08:32] VITALS: BP 106/64
== END 2017-03-27 08:35 | disposition home or self-care (01) ==
LOC: ER 05:49
DX: A08.4 Viral intestinal infection, unspecified (principal); K21.9 Gastro-esophageal reflux disease without esophagitis; E78.5 Hyperlipidemia, unspecified; F17.200 Nicotine dependence, unspecified, uncomplicated

== ENCOUNTER 2018-02-07 16:40 | Observation (INO) | payer BC ==
[2018-02-07 18:10] LABS: BUN/Creatinine Ratio 21.8 (9.0-21.6)
[2018-02-07] MEDS ORDERED: METHYLPREDNISOLONE SOD SUCC/PF 125 MG/2 ML VIAL IV ONE (18:56)
[2018-02-07] MEDS ORDERED: EPINEPHrine 1 MG/ML AMPUL IM ONE ×2 (18:56→23:33)
--- NOTE | 2018-02-07 19:15 | ERNOTE ---
ENT HPI Date of Service: 02/07/18 Time Seen by Provider: 02/07/18 17:19 Source: patient, family Exam Limitations: no limitations - Immun/Allergies/Home Medications Immunizations: IMMUNIZATION HX Immunizations Up to Date Yes History of Influenza Vaccine No Hx Pneumococcal Vaccination No Allergies/Adverse Reactions: Allergies Allergy/AdvReac Type Severity Reaction Status Date / Time cefuroxime Allergy Severe RASH Verified 02/07/18 16:48 clavulanic acid Allergy Severe Hives Verified 02/07/18 16:48 [From Augmentin] codeine [Codeine] Allergy Severe nausea Verified 02/07/18 16:48 diphenhydramine HCl Allergy Severe Hives Verified 02/07/18 16:48 [From Benadryl] ibuprofen Allergy Severe tingling Verified 02/07/18 16:48 in limbs meloxicam [From Mobic] Allergy Severe skin Verified 02/07/18 16:48 peeling and nausea nabumetone Allergy Severe nausea and Verified 02/07/18 16:48 vomiting simvastatin Allergy Severe leg pain, Verified 02/07/18 16:48 lethargy sulfamethoxazole Allergy Severe rash/hives Verified 02/07/18 16:48 [From Bactrim] trimethoprim [From Bactrim] Allergy Severe rash/hives Verified 02/07/18 16:48 venom-honey bee Allergy Severe hives Verified 02/07/18 16:48 [bee venom (honey bee)] azithromycin [From Zithromax] AdvReac Severe rash/skin Verified 02/07/18 16:48 peeling ciprofloxacin [From Cipro] AdvReac Severe Hives Verified 02/07/18 16:48 ciprofloxacin HCl AdvReac Severe Hives Verified 02/07/18 16:48 [From Cipro] doxycycline AdvReac Intermediate Nausea Verified 02/07/18 16:48 Home Medications: HOME MEDICATIONS Esomeprazole Magnesium [Nexium] 20 mg PO DAILY 12/06/15 [Last Taken Unknown] Lactobacillus 3/Fos/Pantethine [Probiotic & Acidophilus Cap] 1 tab PO TID 02/15/16 [Last Taken Unknown] [place] Oil/[place]-3 Fatty Acids [Fish Oil] 1,200 mg PO DAILY 07/24/16 [Last Taken Unknown] multivitamin tablet 1 tab PO DAILY 10/21/17 [Last Taken Unknown] loratadine 10 mg tablet 10 mg PO DAILY 12/07/17 [Last Taken Unknown] Clindamycin HCl [Cleocin HCl] 300 mg PO QID #40 cap 02/05/18 [Last Taken Unknown] - Pain Score Pain Score #1 Pain Score: 6 - History of Present Illness Narrative: The patient is a 42 year old male who presents for throat swelling which has been present since late morning today. There are associated symptoms of anterior neck fullness and pain. The patient reports pain over anterior neck, 9/10. There are no alleviating factors. There are no aggravating factors. Previous treatments have included: current treatment with Clindamycin. The past medical history includes: GERD, HLD and migraine. The social history is positive for current tobacco use. The patient has had no known ill contacts. Patient was seen recently in ER and dx with pharyngitis and treated with Clindamycin, influenza testing was negative. Patient states following this am dose of Clinda he began to have fullness to his throat with progressively worsening symptoms. Patient reports frequent belching and throat clearing without improvement. ENT Location: Present: throat Prearrival Treatment: Present: prescription meds Review of Systems - Review of Systems Constitutional: Present: chills. Absent: fever, fatigue EYE: Present: no symptoms reported ENT: Present: sore throat, throat swelling. Absent: ear pain Respiratory: Present: cough. Absent: shortness of breath Cardiology: Present: no symptoms reported. Absent: chest pain Gastrointestinal/Abdominal: Present: nausea. Absent: vomiting, diarrhea Genitourinary: Present: no symptoms reported. Absent: dysuria Musculoskeletal: Present: no symptoms reported. Absent: joint pain Skin: Present: no symptoms reported Neurological: Present: no symptoms reported Endocrine: Present: no symptoms reported Hematologic/Lymphatic: Present: no symptoms reported Psych: Present: no symptoms reported All Other Systems: All systems neg except as marked Medical History (Last Reviewed 02/07/18 @ 20:14 by SUDHEER Danielle) Migraine (Acute) Onset Date: Unknown Hyperventilation (Acute) Onset Date: Unknown Colitis (Acute) Onset Date: Unknown GERD (gastroesophageal reflux disease) (Acute) Onset Date: Unknown Acute bronchitis (Acute) Onset Date: Unknown HLD (hyperlipidemia) (Acute) Onset Date: Unknown Diarrhea (Acute) Onset Date: Unknown Acute epididymitis (Acute) Onset Date: Unknown Prostatitis (Acute) Onset Date: Unknown UTI (urinary tract infection) (Acute) Onset Date: Unknown Abdominal pain (Acute) Onset Date: Unknown Mononucleosis (Acute) Onset Date: Unknown Localized hives (Acute) Onset Date: Unknown Migraine (Acute) Onset Date: Unknown Hyperventilation (Acute) Onset Date: Unknown Colitis, acute (Acute) Onset Date: Unknown Chest pain (Acute) Onset Date: Unknown GERD (gastroesophageal reflux disease) (Chronic) Onset Date: Unknown Acute bronchitis (Acute) Onset Date: Unknown Infectious colitis (Acute) Onset Date: Unknown HLD (hyperlipidemia) (Chronic) Onset Date: Unknown Diarrhea associated with pseudomembranous colitis (Acute) Onset Date: Unknown Acute epididymitis (Acute) Onset Date: Unknown Fatty liver disease, nonalcoholic (Acute) Onset Date: Unknown Prostatitis (Acute) Onset Date: Unknown Epididymitis (Acute) Onset Date: Unknown Abdominal pain of unknown cause (Acute) Onset Date: Unknown Chest pain (Acute) Onset Date: Unknown Recurrent abdominal pain (Acute) Onset Date: Unknown UTI (urinary tract infection), bacterial (Acute) Onset Date: Unknown Drug reaction (Acute) Onset Date: Unknown Migraine (Acute) Onset Date: Unknown Vertigo (Acute) Onset Date: Unknown Chronic nausea (Acute) Onset Date: Unknown Streptococcal pharyngitis (Acute) Onset Date: Unknown Abdominal pain (Acute) Onset Date: Unknown Mononucleosis (Acute) Onset Date: Unknown Post-tonsillectomy pain (Acute) Onset Date: Unknown Viral enteritis (Acute) Onset Date: Unknown Muscle spasm (Acute) Onset Date: Unknown Peripheral neuropathy, idiopathic (Acute) Onset Date: Unknown H/O wisdom tooth extraction Onset Date: Unknown Surgical History: Surgical History (Last Reviewed 02/07/18 @ 20:14 by SUDHEER Danielle) S/P foot surgery, left (Acute) Onset Date: 04/2015 Hx of tonsillectomy (Acute) Onset Date: Unknown H/O cystoscopy Onset Date: Unknown Family History: Family History (Last Reviewed 02/07/18 @ 20:14 by SUDHEER Danielle) Aunt Thyroid disease Uncle Thyroid disease Father Diabetes Heart disease Diverticulitis Grandfather Cancer Grandmother Cancer Grandmother Diabetes Heart disease Grandfather Diabetes Heart disease Mother No problems noted. Sister , 26 Cancer, Onset Age: 26 Acute myloid leukemia Social History: Preferred Language Kisw[place]ili Smoking Status Current every day smoker Abuse History No History of abuse Psych History Hx of Anxiety Alcohol Use none Drug Use none (Last Updated 01/31/18 @ 17:09 by MELANIE Jones) No Social History Section defined Physical Exam - Physical Exam General Appearance: Present: wd/wn, alert, mild distress, anxious Head Exam: Present: normal inspection, no evidence of injury Eye Exam: Normal inspection: bilateral Ears, Nose, Throat: Present: normal except - - pinna erythema, pharyngeal erythema, pharyngeal swelling, other - tonsils surgically absent, mucinous drainage Neck: Present: normal inspection, tender lateral. Absent: lymphadenopathy (R), lymphadenopathy (L) Respiratory: Present: no respiratory distress, normal breath sounds, no accessory muscle use, lungs clear. Absent: wheezing Cardiovascular/Chest: Present: regular rate, rhythm, no murmur Neurological Exam: Present: alert, oriented, normal mood/affect Skin Exam: Present: normal color, warm/dry Progress - Date and Time Seen: Date and Time: 02/07/18 19:14 Consult with and instructed to proceed with planned care of steroids along with antibiotic change to PCN base due to positive strep. Patient to follow up in clinic tomorrow with at office. 02/07/18 20:00 Patient states feeling better and able to breath thru nose. Discussed with and due to significance of swelling with improvement after epi and solumedrol patient to admitted for monitoring. Patient to follow up with ENT tomorrow at clinic with . Patient to contact ENT office in am and notify them that recommended follow up and for him to be seen. - Results and Orders Patient's Lab Results:: I have reviewed the patient's lab results. Results and Orders: Laboratory Tests 02/07/18 17:43 Group A Strep Rapid Positive H - Vital Signs Patient's Vital Signs:: I have reviewed the patient's vital signs. Vital Signs: Vital Signs 02/07/18 16:41 Temperature 36.7 C Pulse Rate 77 Respiratory Rate 16 Blood Pressure 123/78 O2 Sat by Pulse Oximetry 98 - CT/Ultrasound CT/Ultrasound Narrative: X-RAY REPORT ~[id number] CT/CT Neck W/C *~ Exam Date: 02/07/2018 18:32 Ordering Physician: Marie Malone [facility] CT Neck W/C * DATE: 02/07/2018 6:32 PM INDICATION: throat swelling. Additional technologist comments: Trouble swallowing, recent starting new medication yesterday. TECHNIQUE: Axial computed tomography of the neck with intravenous contrast according to the standard neck protocol. Isovue-370 was administered intravenously. COMPARISON: CT of the soft tissue neck dated 01/06/2017. FINDINGS: There is significant enlargement of the soft tissues in the region of the adenoids and posterior nasopharynx as well as the superior aspect of the oropharynx. At the level the nasopharynx (series 3, image 57), no patent airway is visualized. At the level of the upper portion of the oropharynx, an airway is visualized which measures only 6 mm in diameter. More inferior to this, within the mid aspect of the oropharynx, the airway is patent. There are no inflammatory changes in the parapharyngeal fat. The patient has had a prior tonsillectomy. There are no loculated fluid collections. Scattered subcentimeter lymph nodes are seen in the neck. None are pathologically enlarged or abnormally enhancing. The parotid, submandibular, and thyroid glands are normal. The muscles of the neck are normal. Vessels of the neck demonstrate normal course, caliber, and enhancement. The visualized aerodigestive tract is normal. The visualized posterior fossa and brain is unremarkable. The visualized orbits and paranasal sinuses are normal. There is straightening of the normal cervical lordosis. There are mild multilevel degenerative changes of the cervical spine. The visualized lung apices demonstrate centrilobular emphysema. IMPRESSION: Significant enlargement of the soft tissues in the region of the adenoids and posterior nasopharynx, as well as the superior aspect of the oropharynx. There is one area at the level the nasopharynx in which no patent airway is vis ualized. At the level the upper portion of the oropharynx the airway is severely narrowed and measures up to 6 mm in diameter. More inferior to this, within the mid aspect of the oropharynx, the airway is patent. Given patient's history of strep infection and the start of a new antibiotic, it is unclear if this represents inflammation from the infection or possible allergic reaction to the antibiotic. Recommend clinical correlation and consultation with ENT. There are no inflammatory changes in the parapharyngeal fat. The patient has had a prior tonsillectomy. There are no loculated fluid collections. The above findings were discussed by telephone with Marie Malone at 6:55 PM on 02/07/2018. Electronically signed by Monica Vigil D.O.. - Progress/Reassessment Chief Complaint: Sore Throat Progress:: Re-examined Departure Clinical Impression: Angioedema Qualifiers: Encounter type: initial encounter Qualified Code(s): T78.3XXA - Angioneurotic edema, initial encounter - Departure Disposition: Still a patient Condition: Fair
[2018-02-07] MEDS ORDERED: AMOXICILLIN TRIHYDRATE 250 MG CAPSULE PO ONE (19:23)
[2018-02-07] MEDS ORDERED: DEXAMETHASONE SODIUM PHOSPHATE 10 MG/ML VIAL IV ONE (23:32)
[2018-02-07] MEDS ORDERED: DEXAMETHASONE SODIUM PHOSPHATE 4 MG/ML VIAL ONE (23:38)
[2018-02-07] MEDS ORDERED: EPINEPHrine 0.3 MG DISP.SYRIN IM ONE (23:38)
--- NOTE | 2018-02-08 08:36 | HP ---
Chief Complaint - Chief Complaint Date of Service: 02/08/18 Time of Service: 08:15 Chief Complaint: throat swelling History of Present Illness: Francisco Jennings, is a 42-year-old white male, with past medical history of gastroesophageal reflux disease, hyperlipidemia, who was admitted on 02/07/2018 because of throat swelling. 3 days prior to admission the patient went to our emergency room because of generalized body aches, malaise, coughing. He was diagnosed with acute pharyngitis and was started on clindamycin. He did have a history of C. Difficile colitis and diarrhea with clindamycin in the past. One day prior to admission the patient started noticing swelling of his throat associated with some wheezing and shortness of breath. He also felt that there was anterior neck fullness and pain. He started gagging and having dry heaves a nd so he was brought to the emergency room where he was given epinephrine and Decadron and amoxicillin. His soft tissue CTS showed -Significant enlargement of the soft tissues in the region of the adenoids and posterior nasopharynx, as well as the superior aspect of the oropharynx. There is one area at the level the nasopharynx in which no patent airway is visualized. At the level the upper portion of the oropharynx the airway is severely narrowed and measures up to 6 mm in diameter. More inferior to this, within the mid aspect of the oropharynx, the airway is patent. Given patient's history of strep infection and the start of a new antibiotic, it is unclear if this represents inflammation from the infection or possible allergic reaction to the antibiotic. Recommend clinical correlation and consultation with ENT. There are no inflammatory changes in the parapharyngeal fat. The patient has had a prior tonsillectomy. There are no loculated fluid collections. The ED was able to talk with the ENT taxonomist Dr. Quevedo and she recommended admission for observation and recommended consult with Dr. Francois the following day. He is currently feeling much better clinically. Medical History (Last Reviewed 02/07/18 @ 21:02 by Keena Parsons RN) Migraine (Acute) Onset Date: Unknown Hyperventilation (Acute) Onset Date: Unknown Colitis (Acute) Onset Date: Unknown GERD (gastroesophageal reflux disease) (Chronic) Onset Date: Unknown Acute bronchitis (Acute) Onset Date: Unknown HLD (hyperlipidemia) (Chronic) Onset Date: Unknown Diarrhea (Acute) Onset Date: Unknown Acute epididymitis (Acute) Onset Date: Unknown Prostatitis (Acute) Onset Date: Unknown UTI (urinary tract infection) (Acute) Onset Date: Unknown Abdominal pain (Acute) Onset Date: Unknown Mononucleosis (Acute) Onset Date: Unknown Localized hives (Acute) Onset Date: Unknown Migraine (Acute) Onset Date: Unknown Hyperventilation (Acute) Onset Date: Unknown Colitis, acute (Acute) Onset Date: Unknown Chest pain (Acute) Onset Date: Unknown GERD (gastroesophageal reflux disease) (Chronic) Onset Date: Unknown Acute bronchitis (Acute) Onset Date: Unknown Infectious colitis (Acute) Onset Date: Unknown HLD (hyperlipidemia) (Chronic) Onset Date: Unknown Diarrhea associated with pseudomembranous colitis (Acute) Onset Date: Unknown Acute epididymitis (Acute) Onset Date: Unknown Fatty liver disease, nonalcoholic (Acute) Onset Date: Unknown Prostatitis (Acute) Onset Date: Unknown Epididymitis (Acute) Onset Date: Unknown Abdominal pain of unknown cause (Acute) Onset Date: Unknown Chest pain (Acute) Onset Date: Unknown Recurrent abdominal pain (Acute) Onset Date: Unknown UTI (urinary tract infection), bacterial (Acute) Onset Date: Unknown Drug reaction (Acute) Onset Date: Unknown Migraine (Acute) Onset Date: Unknown Vertigo (Acute) Onset Date: Unknown Chronic nausea (Acute) Onset Date: Unknown Streptococcal pharyngitis (Acute) Onset Date: Unknown Abdominal pain (Acute) Onset Date: Unknown Mononucleosis (Acute) Onset Date: Unknown Post-tonsillectomy pain (Acute) Onset Date: Unknown Viral enteritis (Acute) Onset Date: Unknown Muscle spasm (Acute) Onset Date: Unknown Peripheral neuropathy, idiopathic (Acute) Onset Date: Unknown H/O wisdom tooth extraction Onset Date: Unknown Surgical History: Surgical History (Last Reviewed 02/07/18 @ 21:02 by Keena Parsons RN) S/P foot surgery, left (Acute) Onset Date: 04/2015 Hx of tonsillectomy (Acute) Onset Date: Unknown H/O cystoscopy Onset Date: Unknown Family History: Family History (Last Reviewed 02/07/18 @ 21:03 by Keena Parsons RN) Aunt Thyroid disease Uncle Thyroid disease Father Diabetes Heart disease Diverticulitis Grandfather Cancer Grandmother Cancer Grandmother Diabetes Heart disease Grandfather Diabetes Heart disease Mother No problems noted. 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 Smoking Status Current every day smoker Have you smoked in the past 12 Yes months Do you dip or chew tobacco No Abuse History No History of abuse Psych History Hx of Anxiety Alcohol Use none Drug Use none (Last Updated 01/31/18 @ 17:09 by MELANIE Jones) No Social History Section defined Review Of Systems (GEN) - Review of Systems Generalized/Overall Review: Absent: Chills, Fever, Malaise Respiratory: Present: Cough. Absent: Shortness of Breath Cardiac: Absent: Chest Pain, Palpitations Abdominal: Present: Nausea. Absent: Vomiting Genitourinary: Absent: Urgency, Frequency Musculoskeletal: Present: Joint Pain Neurological: Absent: Headache Immunizations: IMMUNIZATION HX Immunizations Up to Date Yes History of Influenza Vaccine No Hx Pneumococcal Vaccination No Allergies/Adverse Reactions: Allergies Allergy/AdvReac Type Severity Reaction Status Date / Time cefuroxime Allergy Severe RASH Verified 02/07/18 16:48 clavulanic acid Allergy Severe Hives Verified 02/07/18 16:48 [From Augmentin] clindamycin Allergy Severe Anaphylaxis Verified 02/08/18 07:39 codeine [Codeine] Allergy Severe nausea Verified 02/07/18 16:48 diphenhydramine HCl Allergy Severe Hives Verified 02/07/18 16:48 [From Benadryl] ibuprofen Allergy Severe tingling Verified 02/07/18 16:48 in limbs meloxicam [From Mobic] Allergy Severe skin Verified 02/07/18 16:48 peeling and nausea nabumetone Allergy Severe nausea and Verified 02/07/18 16:48 vomiting simvastatin Allergy Severe leg pain, Verified 02/07/18 16:48 lethargy sulfamethoxazole Allergy Severe rash/hives Verified 02/07/18 16:48 [From Bactrim] trimethoprim [From Bactrim] Allergy Severe rash/hives Verified 02/07/18 16:48 venom-honey bee Allergy Severe hives Verified 02/07/18 16:48 [bee venom (honey bee)] azithromycin [From Zithromax] AdvReac Severe rash/skin Verified 02/07/18 16:48 peeling ciprofloxacin [From Cipro] AdvReac Severe Hives Verified 02/07/18 16:48 ciprofloxacin HCl AdvReac Severe Hives Verified 02/07/18 16:48 [From Cipro] doxycycline AdvReac Intermediate Nausea Verified 02/07/18 16:48 Home Medications: HOME MEDICATIONS Esomeprazole Magnesium [Nexium] 20 mg PO DAILY 12/06/15 [Last Taken 02/07/18 06:00] Lactobacillus 3/Fos/Pantethine [Probiotic & Acidophilus Cap] 2 tab PO BID 02/15/16 [Last Taken 02/07/18 06:00] [place] Oil/[place]-3 Fatty Acids [Fish Oil] 1,200 mg PO DAILY 07/24/16 [Last Taken 02/07/18 06:00] multivitamin tablet 1 tab PO DAILY 10/21/17 [Last Taken 02/07/18 06:00] loratadine 10 mg tablet 10 mg PO DAILY PRN 12/07/17 [Last Taken Unknown] Clindamycin HCl [Cleocin HCl] 300 mg PO QID #40 cap 02/05/18 [Last Taken 02/07/18 06:00] Exam - Exam Vital Signs: Vital Signs - Last Taken Temp 36.9 C 02/08/18 06:47 Pulse 80 02/08/18 06:47 Resp 24 H 02/08/18 06:47 BP 110/59 02/08/18 06:47 Pulse Ox 95 02/08/18 06:47 Constitutional: Present: Alert, Oriented x3, Cooperative, Well developed, Well nourished ENT Exam: Present: hearing grossly normal, pharyngeal erythema, other - no grayish membrane Eye Exam: bilateral eye: normal inspection, PERRL, EOMI Neck: Absent: lymphadenopathy (R), lymphadenopathy (L), stiff neck Respiratory: Present: decreased breath sounds, No rales, No wheezing Cardiovascular/Chest: Present: regular rate, rhythm, no JVD, no murmur Abdomen: Present: Normal bowel sounds, soft, nontender, nondistended Extremity: Present: no pedal edema, no calf tenderness Diagnostic Studies: Abnormal Lab Results 02/07/18 02/07/18 Range/Units 17:42 17:43 BUN/Creatinine Ratio 21.8 H (9.0-21.6) Group A Strep Rapid Positive H (NEGATIVE) Laboratory Results BUN 19 mg/dL (6-23) 02/07/18 17:42 Creatinine 0.87 mg/dL (0.4-1.4) 02/07/18 17:42 Est GFR (Non-Af Amer) 101 mL/min (60-130) 02/07/18 17:42 BUN/Creatinine Ratio 21.8 (9.0-21.6) H 02/07/18 17:42 Group A Strep Rapid Positive (NEGATIVE) H 02/07/18 17:43 Assessment/Plan - Assessment/Plan (1) Angioedema Assessment: had decadron and epinephrine. clindamycin discontinued. inflammation due to allergy vs infection. will get ENT consult- talked to Dr. Francois. Problem: Acute Qualifiers: Encounter type: initial encounter Qualified Code(s): T78.3XXA - Angioneurotic edema, initial encounter (2) Pharyngitis Assessment: positive rapid strep test. continue with amoxicillin for now as he says that this is the only antibiotic he has had no problems ever since . he has allergies to multiple antibiotics- hives and rashes- azithromycin, cefuroxime (?), bactrim, doxycycline. will get ENT consult. Problem: Acute Qualifiers: Pharyngitis/tonsillitis etiology: streptococcus Qualified Code(s): J02.0 - Streptococcal pharyngitis (3) GERD (gastroesophageal reflux disease) Problem: Chronic (4) HLD (hyperlipidemia) Problem: Chronic
[2018-02-08] MEDS ORDERED: ACIDOPHILUS PO SCH ×2 (09:00→21:00)
[2018-02-08] MEDS ORDERED: PROBIOTIC PO SCH ×2 (09:00→21:00)
[2018-02-08] MEDS ORDERED: PANTOPRAZOLE SODIUM 20 MG TABLET.DR PO SCH (09:00)
[2018-02-08] MEDS ORDERED: AMOXICILLIN TRIHYDRATE 500 MG CAPSULE PO SCH (09:00)
[2018-02-08 10:21] LABS: Hematocrit 37.2 % (42.0-52.0); Hemoglobin 12.8 gm/dL (13.5-18.0); Mean Cell Volume 88.6 fl (78-100); Mean Corpuscular Hemoglobin 30.5 pg (27-31); Mean Corpuscular Hgb Conc 34.4 g/dl (32-36); Neutrophil # 19.3 K/mm3 (1.3-6.0); Neutrophil % 90.2 % (42-75.0); Platelet Count 265 K/mm3 (150-450); Red Cell Distribution Width 12.2 % (11.5-14.0)
[2018-02-08 10:23] LABS: White Blood Count 21.3 K/mm3 (4.0-10.5)
[2018-02-08 10:41] LABS: Albumin * 3.9 gm/dl (3.4-5.0); Anion Gap 14.2 mmol/L (6.8-13.8); Bilirubin, Total 0.2 mg/dL (0.0-1.1); Ca. Corrected For Albumin 9.9 mg/dL (8.4-10.2); Calcium * 10.1 mg/dL (7.9-10.9); Carbon Dioxide 24.2 mmol/L (24-32.6); Potassium 4.4 mmol/L (3.4-4.6); Total Protein 7.7 gm/dL (6.2-8.2)
[2018-02-08] MEDS ORDERED: OXYMETAZOLINE HCL 150 SPRAY BTL NS ONE (11:31)
--- NOTE | 2018-02-08 12:41 | PN ---
Progess Note - Interim Date: 02/08/18 Time: 12:41 Narrative: 02/08/18 12:41 leukocytosis due to acute pharyngitis/ allergy and steroids.
--- NOTE | 2018-02-08 13:27 | DS ---
(1) Angioedema Problem: Acute Qualifiers: Encounter type: initial encounter Qualified Code(s): T78.3XXA - Angioneurotic edema, initial encounter (2) Pharyngitis Problem: Acute Qualifiers: Pharyngitis/tonsillitis etiology: streptococcus Qualified Code(s): J02.0 - Streptococcal pharyngitis (3) GERD (gastroesophageal reflux disease) Problem: Chronic (4) HLD (hyperlipidemia) Problem: Chronic Description of Stay: Francisco Jennings is a 42-year-old white male, with past medical history of gastroesophageal reflux disease, hyperlipidemia, who was admitted on 02/07/2018 because of throat swelling. 3 days prior to admission the patient went to our emergency room because of generalized body aches, malaise, coughing. He was diagnosed with acute pharyngitis and was started on clindamycin. He did have a history of C. Difficile colitis and diarrhea with clindamycin in the past. One day prior to admission the patient started noticing swelling of his throat associated with some wheezing and shortness of breath. He also felt that there was anterior neck fullness and pain. He started gagging and having dry heaves and so he was brought to the emergency room where he was given epinephrine and Decadron and amoxicillin. His soft tissue CTS showed -Significant enlargement of the soft tissues in the region of the adenoids and posterior nasopharynx, as well as the superior aspect of the oropharynx. There is one area at the level the nasopharynx in which no patent airway is visualized. At the level the upper portion of the oropharynx the airway is severely narrowed and measures up to 6 mm in diameter. More inferior to this, within the mid aspect of the oropharynx, the airway is patent. Given patient's history of strep infection and the start of a new antibiotic, it is unclear if this represents inflammation from the infection or possible allergic reaction to the antibiotic. Recommend clinical correlation and consultation with ENT. There are no inflammatory changes in the parapharyngeal fat. The patient has had a prior tonsillectomy. There are no loculated fluid collections. The ED was able to talk with the ENT security monitor Dr. Quevedo and she recommended admission for observation and recommended consult with Dr. Francois the following day. He is feeling much better clinically today. ENT consult was done and Dr. Francois saw the patient. He says his passages are clear today and he may be discharged and follow up with him next week. He can go home today with oral antibiotics- Amoxicillin x 7 days and follow up with me in 1 week. Procedures Performed: none Results and Findings: Lab Pending Results 02/07/18 17:42: BUN 19, Creatinine 0.87, Est GFR (Non-Af Amer) 101, BUN/Creatinine Ratio 21.8 H 02/07/18 17:43: Group A Strep Rapid Positive H 02/08/18 09:45: WBC 21.3 H, RBC 4.20 L, Hgb 12.8 L, Hct 37.2 L, MCV 88.6, MCH 30.5, MCHC 34.4, RDW 12.2, Plt Count 265, MPV 10.0, Immature Gran % (Auto) 0.70 H, Immature Gran # (Auto) 0.14 H, Neutrophils % 90.2 H, Lymphocytes % 5.8 L, Monocytes % 3.2, Eosinophils % 0.0, Basophils % 0.1, Nucleated RBC % 0.0, Neutrophils # 19.3 H, Lymphocytes # 1.24 L, Monocytes # 0.7, Eosinophils # 0.0, Absolute Basophils 0.0 02/08/18 09:45: Sodium 133, Plasma Sodium 135, Potassium 4.4 D, Chloride 99, Carbon Dioxide 24.2, Anion Gap 14.2 H, BUN 21, Creatinine 1.00, Est GFR (Non-Af Amer) 86, BUN/Creatinine Ratio 21.0, Random Glucose 194 H, Calcium 10.1, Calcium Adj for Albumin 9.9, Total Bilirubin 0.2, AST 21, ALT 43, Alkaline Phosphatase 95, Total Protein 7.7, Albumin 3.9 Discharge Location: Home Disposition: Home self-care Condition: Stable Discharge Activity: Activity as tolerated Discharge Diet: General/regular food Referrals: Chinyere Scott MD [Primary Care Provider] - Additional Patient Instructions (free text): Follow up with me in 1 week. Please make an appointment with Dr. Francois next week. Complete Home Medications List: Complete Home Medication List: Esomeprazole Magnesium [Nexium] 20 mg PO DAILY 12/06/15 Lactobacillus 3/Fos/Pantethine [Probiotic & Acidophilus Cap] 2 tab PO BID 02/15/16 [place] Oil/[place]-3 Fatty Acids [Fish Oil] 1,200 mg PO DAILY 07/24/16 multivitamin tablet 1 tab PO DAILY 10/21/17 loratadine 10 mg tablet 10 mg PO DAILY PRN 12/07/17 Acetaminophen [Tylenol] 650 mg PO QID PRN #30 tablet 02/08/18 Amoxicillin Trihydrate [Amoxil] 500 mg PO Q12H #14 capsule 02/08/18
[2018-02-08 15:52] VITALS: BP 100/49
== END 2018-02-08 16:30 | disposition home or self-care (01) ==
LOC: ER 16:40 → MS 16:40
PROVIDERS: ADMIT Internal Medicine; ATTEND Internal Medicine
CPT/HCPCS: 36415; 70491; 80053; 82565; 84520; 85025; 87430; 96372; 96374; 96375; 99285; G0378